=== PATIENT | female | born 1965 | race Caucasian/White ===

== ENCOUNTER 2022-10-15 09:34 | Outpatient (AMB) | payer OTHER, SELFPAY ==
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
[2022-10-15 09:39] VITALS: BP 127/83; PULSE 55; O2SAT 98; BMI 23.8
== END 2022-10-15 10:25 | disposition home or self-care (01) ==
PROVIDERS: PCP Family Medicine; Visit Provider Internal Medicine
DX: M47.817 Spondylosis without myelopathy or radiculopathy, lumbosacral region (principal); M53.3 Sacrococcygeal disorders, not elsewhere classified
CPT/HCPCS: 99204

== ENCOUNTER → 2022-10-15 09:34 | Outpatient (BNVA) | payer OTHER, SELFPAY | PROVIDERS: Visit Provider Internal Medicine ==

== ENCOUNTER 2022-11-14 06:04 | Outpatient (REF) | payer OTHER, SELFPAY ==
--- NOTE | ~2022-11-14 | FL_ITS ---
EXAMINATION: XR FLUOROSCOPY WITH IMAGES CLINICAL INFORMATION: Spondylosis without myelopathy or radiculopathy, lumbosacral region. Bilateral lumbar injections. COMPARISON: None available. TECHNIQUE: Fluoroscopy Supervised By: Dr. Alonso Terrell. Fluoroscopy Time: 0.2 minutes. Cumulative Dose: 3.13 mGy. DAP: 0.352 Gycm2. Images: 3. FINDINGS: Images demonstrate needle placement and contrast injection adjacent to the bilateral lateral L5 and right L3 vertebrae. Fusion hardware L4-L5. FL/FL guidance in treatment room IMPRESSION: Fluoroscopy guidance for pain management procedure.
== END 2022-11-14 06:05 | disposition home or self-care (01) ==
LOC: CF 06:04
PROVIDERS: Visit Provider Internal Medicine
DX: M47.817 Spondylosis without myelopathy or radiculopathy, lumbosacral region (principal)
CPT/HCPCS: 64493; 64494

== ENCOUNTER 2022-11-14 08:10 | Outpatient (AMB) | payer OTHER, SELFPAY ==
--- OUTSIDE RECORDS SUMMARY | 2022-11-14 08:11 | XMS_ITS | Continuity of Care Document ---
Author Name Unknown Organization [facility] Address [address] [place] [address]- Care Team Providers Care Receptionist Nurse Name Role Phone Darell Zacarias DO Primary Care [id number]s): [facility]07[facility]21 - 02/18/22 [facility] [address] [place] [address]- Attending Physician: Charles Patten MD Admitting Physician: Charles Patten MD Referring Physician: Mira Crenshaw NP Allergies, Adverse Reactions, Alerts Substance Reaction Severity Status sulfa drugs Active Medications Flonase 1 sprays, Daily, 0 Refills, Maintenance, 11/29/14 7:54:46 Start Date: 11/29/14 Status: Ordered Flovent Diskus 50 mcg/inh inhalation powder 1 each, Inhalation, 2 times a day, # 60 each, 0 Refills, Maintenance, 11/22/21 13:18:00 EDT, [id number], Partial fill upon patient request if the prescription is for a schedule II opioid drug., 1 each Inhalation 2 times a day,... Start Date: 11/22/21 Status: Ordered Multivitamin Daily, 0 Refills, Maintenance, 03/26/17 15:49:30 Start Date: 03/26/17 Status: Ordered Probiotic Formula 1 capsule, By Mouth, Daily, 0 Refills, Maintenance, 11/29/14 7:54:36 Start Date: 11/29/14 Status: Ordered Readi-Cat Readi-Cat, See Instructions, # 2 bottle, Refills 0, Tot. Refills 0, Maintenance, 1)Drink one bottleof Readi-Cat the evening prior to exam. 2)One hour prior to exam, drink a second bottle of Readi-Cat, 03/27/17 18:04:00, see refrence informaiton on... Start Date: 03/27/17 Status: Ordered Readi-Cat 2 oral suspension See Instructions, Drink one bottle of Readi-Cat the evening prior to exam. One hour prior to exam, drink a second bottle of Readi-Cat, # 2 bottle, 0 Refills, Maintenance, 03/27/17 17:18:34, Drink onebottle of Readi-Cat the evening prior to exam.... Start Date: 03/27/17 Status: Ordered Problem List Condition Confirmation Course Effective Dates Status Health St atus Informant Bradycardia Confirmed Active Social History Social History Type Response Smoking Status Never (less than 100 in lifetime) entered on: 04/18/20 Sex Patient Care team information Care Team Personnel Name: Darell Zacarias DO Position: [facility] Primary Care Physician Member Role: PCP Address: Address: [address] [place] [address] [place] [address]- Name: Emerald GUSTAFSON, Madhuri Position: [facility] Physician -Physician Practices Member Role: Lifetime Consulting Physician Care Team Related Persons Name: REVA TURPIN Address: [address] [place] [address] Name: FANTA VERONICA Address: home [address] [place] [id number]
--- OUTSIDE RECORDS SUMMARY | 2022-11-14 08:11 | XMS_ITS | Continuity of Care Document ---
Author Name Unknown Organization [facility] Address [address] [place] [address]- Care Team Providers Care Clay Grinder Name Role Phone Darell Zacarias DO [facility] [id number] Date(s): 01/19/22 - 02/18/22 [facility] [address] [place] [address]- Attending Physician: Felice Corrigan Admitting Physician: Felice Corrigan Referring Physician: Felice Corrigan Allergies, Adverse Reactions, Alerts Substance Reaction Severity Status sulfa drugs Active Medications Flonase 1 sprays, Daily, 0 Refills, Maintenance, 11/29/14 7:54:46 Start Date: 11/29/14 Status: Ordered Flovent Diskus 50 mcg/inh inhalation powder 1 each, Inhalation, 2 times a day, # 60 each, 0 Refills, Maintenance, 11/22/21 13:18:00 EDT, Powder, [id number], Partial fill upon patient request if the [...] Team Personnel Name: Darell Zacarias DO Position: [facility] Primary Care Physician Member Role: PCP Address: Address: [address] [place] [address] [place] [address]- Name: Madhuri Corbin MD Position: [facility] Physician -Physician Practices Member Role: Lifetime Consulting Physician Care Team Related Persons Name: REVA TURPIN Address: home [address] [place] [address] Name: FANTA VERONICA Address: home [address] [place] [address]
[2022-11-14 08:24] VITALS: BP 120/64; PULSE 54; RESP 14; O2SAT 100
--- NOTE | 2022-11-14 08:24 | A.OFFVIS_ITS ---
Intake Vital Signs 11/14/22 08:24 11/14/22 09:06 BP 120/64 112/62 Blood Pressure Location Rt brachial Lt brachial Position Sitting Sitting Respiration 14 14 Pulse 54 54 Pulse Source Pulse Oximeter Pulse Oximeter Pulse Oximetry (%) 100 100 Oxygen Delivery Method Room Air Room Air Intake Visit Reasons: Taj Dx L3-L4-L5 MBB Allergies Sulfa (Sulfonamide Antibiotics) Allergy (Unknown, Verified 11/14/22 08:24) Unknown HPI Taj Dx L3-L4-L5 MBB HPI Details Patient presents for scheduled procedure. Denies any recent cough, cold, infection, fever or other significant changes in medical history since last office visit. [facility] Medical History (Updated 10/18/22 @ 11:53 by Alonso Terrell MD) Disorder of sacrum Lumbosacral spondylosis without myelopathy Surgical History (Updated 10/18/22 @ 11:53 by Alonso Terrell MD) History of lumbar laminectomy Social History (Updated 10/15/22 @ 09:42 by Brenda Olvera) Alcohol intake: current Alcohol type: beer and wine Patient Tobacco Use Status: Never used Tobacco Physical Exam Vital Signs: Last Vital Signs Pulse 54 11/14/22 08:24 Resp 14 11/14/22 08:24 BP 120/64 11/14/22 08:24 Pulse Ox 100 11/14/22 08:24 Oxygen Delivery Method Room Air 11/14/22 08:24 Office Procedures Lumbar/Sacral Facet Inj Details: Lumbar Medial Branch Block, Right L2, L4 medial branches and L5 Dorsal Ramus (2 levels, 3 nerves), Left L4 medial branch and L5 Dorsal Ramus (1 level, 2 nerves) After obtaining written consent, pre-procedure blood pressure and pulse were recorded and are in the nursing record for review. The patient was placed in a prone position. The respective lumbosacral area was prepped with chloraprep and draped in sterile fashion. The skin over the target medial branch nerves was anesthetized with 0.5% lidocaine. A 22 gauge 3.5 inch needle was inserted into the target medial branch nerve under fluoroscopic guidance. No paresthesias were elicited with needle placement and aspiration was negative for blood and CSF. Next, 0.2cc of Isovue 300 was injected to verify positioning. Next 0.5 ml 0.5% ropivicaine was injected (0.5cc total per level). The identical procedure was performed at the remaining levels. The skin was cleansed and a sterile bandage was applied. Following the procedure the patient's vital signs were stable. The patient tolerated the procedure well and no complications were encountered. Following the procedure the patient's vital signs were stable. The patient was discharged home in good condition with post-procedural instructions. Time Out: Immediately prior to the procedure, the following was verbally confirmed that there is a signed consent form and that the correct patient, planned procedure, site and side are consistent with documentation and that necessary equipment and/or blood products are available prior to the start of the case. Complications: none EBL: <5 cc 51684 - second level, with Fluoroscopy Procedure code (CPT) selection complete Assessment & Plan Assessment & Plan (1) Lumbosacral spondylosis without myelopathy: Code(s): M47.817 - Spondylosis without myelopathy or radiculopathy, lumbosacral region Plan Patient is status post bilateral lumbar MBBs. Patient tolerated procedure well and was discharged home in stable condition with discharge instructions. All questions were answered. We will follow-up via telephone or in clinic to assess response to therapy. A follow-up appointment was made during today's visit. Orders: Orders FL guidance in treatment room Today M47.817 - Spondylosis without myelopathy or radiculopathy, lumbosacral region Coding Level of Care Code Procedure Only Diagnoses Lumbosacral spondylosis without myelopathy M47.817 CPT Codes Facet Injection-Lumbar/Sacral - CPT: 24870 - second level, with Fluoroscopy ([id number])
[2022-11-14 09:06] VITALS: BP 112/62; PULSE 54; RESP 14; O2SAT 100
== END 2022-11-14 09:08 | disposition home or self-care (01) ==
LOC: HO.PMCPRC 08:10
PROVIDERS: PCP Family Medicine; Visit Provider Internal Medicine
DX: M47.817 Spondylosis without myelopathy or radiculopathy, lumbosacral region (principal)
CPT/HCPCS: 64493; 64494

== ENCOUNTER 2022-11-16 10:42 | Outpatient (AMB) | payer OTHER, SELFPAY ==
--- NOTE | 2022-11-16 10:42 | MHC.OFFVIS ---
Intake Intake Visit Reasons: s/p dell DxL3-L4-L5 MBB Allergies Sulfa (Sulfonamide Antibiotics) Allergy (Unknown, Verified 11/14/22 08:24) Unknown HPI s/p dell DxL3-L4-L5 MBB HPI Details 57-year-old female is presenting today for a status post bilateral diagnostic L3-L4-L5 MBB. The patient reports no relief following the procedure. She states that her pain is localized in the lumbosacral region and radiates to her right buttock/hip region. She has intermittent shooting pain in her right hip region. She denies any radiating pain in her leg. She does body-weight squats and lunges while playing pickleball which increases the right-sided pain. She plays golf once a week. She is wearing SIJ belts at home without noticing any relief. The patient underwent right- and left-sided L5-S1 facet injections in the past, with significant relief for several months. She also had a diagnostic SIJ injection in the past with out relief though she does have a history of prior response to sacroiliac joint injections. She is occasionally using TENS units QHS with minimal benefits. She takes ibuprofen or Aleve (one tab) as needed. She has a schedule appointment for SIJ injection on 12/05/22. Past procedure: 11/14/22: Lumbar Medial Branch Block, Right L2, L4 medial branches and L5 Dorsal Ramus (2 levels, 3 nerves), Left L4 medial branch and L5 Dorsal Ramus (1 level, 2 nerves): No relief. [facility] Medical History (Updated 11/16/22 @ 12:12 by Alonso Terrell MD) Disorder of sacrum Lumbosacral spondylosis without myelopathy Surgical History (Updated 10/18/22 @ 11:53 by Alonso Terrell MD) History of lumbar laminectomy Social History (Updated 10/15/22 @ 09:42 by Brenda Olvera) Alcohol intake: current Alcohol type: beer and wine Patient Tobacco Use Status: Never used Tobacco Review of Systems Const All systems reviewed & are unremarkable except as noted in HPI and below Physical Exam General: Appears afebrile. Alert and oriented. Mood and affect appropriate. Follows and participates in conversation appropriately. Respiratory effort is unlabored. Able to transition from sit to stand unassisted. Ambulates with bilaterally normal heel strike and toe off. Results Reviewed Results Reviewed: No imaging is available for review. Assessment & Plan Assessment & Plan (1) Disorder of sacrum: Code(s): M53.3 - Sacrococcygeal disorders, not elsewhere classified (2) Lumbosacral spondylosis without myelopathy: Code(s): M47.817 - Spondylosis without myelopathy or radiculopathy, lumbosacral region (3) Post laminectomy syndrome: Code(s): M96.1 - Postlaminectomy syndrome, not elsewhere classified Plan 57-year-old female with a prior history of L4-5 laminectomy and fusion with intractable low back pain that has not been responsive to recent injection therapies including medial branch blocks and diagnostic SI joint injection. Since she has a prior history of positive response to sacroiliac joint injections, she is interested in trialing 1 word sacroiliac joint injection to see if that might provide some relief. There is no relief from the sacroiliac joint injection, we will consider a trial of spinal cord stimulation. I went over the details of psychology clearance, SCS trial an SCS implant with the patient today ? Scribed for Dr. Terrell by Kali Madrid, medical reception specialist, on 11/16/2022. I, Dr. Terrell, have personally reviewed and agree with the information entered by the scribe. Telehealth Telehealth Location of provider rendering services: practice address Location of patient: address on file Patient Identification confirmed using: Name, : Yes Telehealth method: voice only Patient verbally consented to treatment: Yes Patient verbally consented to billing insurance company: Yes Patient informed of any privacy concerns related to visit: Yes Minutes spent on Phone/Video with Pt.: 16 Coding Level of Care Code Tele Est Pt Level 4 (50083) Diagnoses Disorder of sacrum M53.3 Lumbosacral spondylosis without myelopathy M47.817 Post laminectomy syndrome M96.1
== END 2022-11-16 10:43 | disposition home or self-care (01) ==
LOC: HO.PMC 10:42
PROVIDERS: PCP Family Medicine; Visit Provider Internal Medicine
DX: M53.3 Sacrococcygeal disorders, not elsewhere classified (principal); M47.817 Spondylosis without myelopathy or radiculopathy, lumbosacral region; M96.1 Postlaminectomy syndrome, not elsewhere classified
CPT/HCPCS: 99442

== ENCOUNTER → 2022-11-16 10:42 | Outpatient (BNVA) | payer OTHER, SELFPAY | PROVIDERS: PCP Family Medicine; Visit Provider Internal Medicine ==

== ENCOUNTER 2022-12-05 06:07 | Outpatient (REF) | payer OTHER, SELFPAY ==
--- NOTE | ~2022-12-05 | FL_ITS ---
EXAMINATION: XR FLUOROSCOPY WITH IMAGES CLINICAL INFORMATION: Sacrococcygeal disorders, not elsewhere classified. COMPARISON: None available. TECHNIQUE: Fluoroscopy Supervised By: Dr. Alonso Terrell. Fluoroscopy Time: 0.2 minutes. Cumulative Dose: 4.90 mGy. DAP: 0.347 Gycm2. Images: 4. FINDINGS: Images demonstrate needle placement projecting over the bilateral sacroiliac joints FL/FL guidance in treatment room IMPRESSION: Fluoroscopy guidance for pain management procedure
== END 2022-12-05 06:08 | disposition home or self-care (01) ==
LOC: CF 06:07
PROVIDERS: Visit Provider Internal Medicine
DX: M53.3 Sacrococcygeal disorders, not elsewhere classified (principal)
CPT/HCPCS: 27096; J1040

== ENCOUNTER 2022-12-05 08:12 | Outpatient (AMB) | payer OTHER, SELFPAY ==
[2022-12-05 08:19] VITALS: BP 138/82; PULSE 54; RESP 14; O2SAT 100
--- NOTE | 2022-12-05 08:19 | MHC.OFFVIS ---
Intake Vital Signs 12/05/22 08:19 12/05/22 08:57 BP 138/82 124/76 Blood Pressure Location Rt brachial Lt brachial Position Sitting Sitting Respiration 14 14 Pulse 54 56 Pulse Source Pulse Oximeter Pulse Oximeter Pulse Oximetry (%) 100 100 Oxygen Delivery Method Room Air Room Air Intake Visit Reasons: Taj theraputic SIJ inj Allergies Sulfa (Sulfonamide Antibiotics) Allergy (Unknown, Verified 12/05/22 08:20) Unknown HPI Taj theraputic SIJ inj HPI Details Patient presents for scheduled procedure. Denies any recent cough, cold, infection, fever or other significant changes in medical history since last office visit. [facility] Medical History (Updated 11/16/22 @ 12:12 by Alonso Terrell MD) Disorder of sacrum Lumbosacral spondylosis without myelopathy Surgical History (Updated 10/18/22 @ 11:53 by Alonso Terrell MD) History of lumbar laminectomy Social History (Updated 10/15/22 @ 09:42 by Brenda Olvera) Alcohol intake: current Alcohol type: beer and wine Patient Tobacco Use Status: Never used Tobacco Physical Exam Vital Signs: Last Vital Signs Pulse 54 12/05/22 08:19 Resp 14 12/05/22 08:19 BP 138/82 12/05/22 08:19 Pulse Ox 100 12/05/22 08:19 Oxygen Delivery Method Room Air 12/05/22 08:19 Office Procedures Joint Injection/Drain Joint Injection/Drain Details: Sacroiliac Joint Injection, Bilateral The procedure, its benefits, and its risks were explained and written informed consent was obtained from the patient. Immediately prior to starting the procedure, a time-out safety check was conducted. The patient's identification, procedure name, procedure site, and procedure laterality were confirmed with the patient. ? Patient was placed prone on the fluoroscopy table and the lumbosacral area was prepped using ChloraPrep and draped with sterile drapein standard fashion. The C-arm was rotated in a contralateral oblique fashion until the medial border of the iliac crest no longer foreshadowed the posterior sacroiliac joint line. The skin and subcutaneous tissue was anesthetized using 1 mL of 0.75% plain lidocaine with 1.5-inch 25-gauge needle in the middle region of the joint line.? A 3.5-inch 22-gauge spinal needle with small bend on the tip was slowly advanced towards the joint line, coaxial to the x-ray beam. Once bony content was obtained, the needle was easily slid into the intra-articular space.? Intra-articular needle position was confirmed using lateral fluoroscopy.? A total volume of 1.5mL of solution containing 40 mg Depomedrol and rest 0.5% of ropivacaine was injected intra-articularly. The stylet was reinserted and needle was removed. The same procedure was repeated on the other side. The patient tolerated the procedure well. Patient denied any lower extremity weakness or numbness. Patient was observed for 30 min and was discharged after fulfilling the standard discharge criteria. Coding 95231 - Sacroiliac (bilateral) Procedure code (CPT) selection complete Results Reviewed Results Reviewed: 12/05/22 08:24 Lidocaine HCl 2 % MPF [Xylocaine 2 % MPF] 5 ml .ROUTE .STK-MED ONE methylPREDNISolone acetate [DEPO-MedroL] 80 mg .ROUTE .STK-MED ONE Assessment & Plan Assessment & Plan (1) Disorder of sacrum: Code(s): M53.3 - Sacrococcygeal disorders, not elsewhere classified Plan Patient is status post bilateral intra-articular SIJ steroid injections. Patient tolerated procedure well and was discharged home in stable condition with discharge instructions. All questions were answered. We will follow-up via telephone or in clinic to assess response to therapy. A follow-up appointment was made during today's visit. Orders: Orders FL guidance in treatment room Today M53.3 - Sacrococcygeal disorders, not elsewhere classified Coding Level of Care Code Procedure Only Diagnoses Disorder of sacrum M53.3 CPT Codes Coding - Joint 9: 86465 - Sacroiliac ([id number])
[2022-12-05 08:57] VITALS: BP 124/76; PULSE 56; RESP 14; O2SAT 100
== END 2022-12-05 08:54 | disposition home or self-care (01) ==
LOC: HO.PMCPRC 08:12
PROVIDERS: PCP Family Medicine; Visit Provider Internal Medicine
DX: M53.3 Sacrococcygeal disorders, not elsewhere classified (principal)
CPT/HCPCS: 27096

== ENCOUNTER 2023-01-04 09:36 | Outpatient (AMB) | payer OTHER, SELFPAY ==
--- NOTE | 2023-01-04 09:37 | A.OFFVIS_ITS ---
Intake Intake Visit Reasons: s/p dell theraputic SIJ inj/lvm Allergies Sulfa (Sulfonamide Antibiotics) Allergy (Unknown, Verified 12/05/22 08:20) Unknown HPI s/p dell theraputic SIJ inj/lvm HPI Details 57-year-old female who presents today vi a tele-visit for a status post bilateral therapeutic SIJ injection. The patient reports 75% relief following the procedure. She has mild discomfort that is not bothersome. The patient has a past history of L4-5 fusion and a laminectomy in June 2016. She has received L5-S1 facet injections in the past from Dr. Dukes without any relief. She had an MRI scan that was ordered by Dr. Appiah, neurosurgery, on 01/08/2020, which is not available for review today. She is going to [place] in the winter for vacation. She plays pick-a-ball that includes twisting and bending. She inquired about trying a muscle relaxant or oral medication for her intermittent low back pain that occasionally radiates down to her lower extremities. Past procedures: 12/05/22: Bilateral intra-articular SIJ steroid injections: more than 75% relief. 11/14/22: Lumbar Medial Branch Block, Ri ght L2, L4 medial branches and L5 Dorsal Ramus (2 levels, 3 nerves), Left L4 medial branch and L5 Dorsal Ramus (1 level, 2 nerves): No relief. [facility] Medical History (Updated 11/16/22 @ 12:12 by Alonso Trerell MD) Disorder of sacrum Lumbosacral spondylosis without myelopathy Surgical History (Updated 10/18/22 @ 11:53 by Alonso Terrell MD) History of lumbar laminectomy Social History (Updated 10/15/22 @ 09:42 by Brenda Olvera) Alcohol intake: current Alcohol type: beer and wine Patient Tobacco Use Status: Never used Tobacco Review of Systems Const All systems reviewed & are unremarkable except as noted in HPI and below Results Reviewed Results Reviewed: No imaging is available for review. Assessment & Plan Assessment & Plan (1) Post laminectomy syndrome: Code(s): M96.1 - Postlaminectomy syndrome, not elsewhere classified (2) Disorder of sacrum: Code(s): M53.3 - Sacrococcygeal disorders, not elsewhere classified Plan Excellent response to therapeutic sacroiliac joint injection. Meloxicam to be taken as needed while she is traveling in [place]. She will follow up as needed for a repeat injection. Scribed for Dr. Terrell by Kali Madrid, medical radiation therapist, on 01/04/2023. I, Dr. Terrell, have personally reviewed and agree with the information entered by the scribe. Medications: New meloxicam 15 mg PO DAILY 30 tabs 0RF Telehealth Telehealth Location of provider rendering services: practice address Location of patient: address on file Patient Identification confirmed using: Name, : Yes Telehealth method: voice only Patient verbally consented to treatment: Yes Patient verbally consented to billing insurance company: Yes Patient informed of any privacy concerns related to visit: Yes Minutes spent on Phone/Video with Pt.: 14 Coding Level of Care Code Tele Est Pt Level 3 (70347) Diagnoses Post laminectomy syndrome M96.1 Disorder of sacrum M53.3
== END 2023-01-04 09:37 | disposition home or self-care (01) ==
LOC: HO.PMC 09:36
PROVIDERS: PCP Family Medicine; Visit Provider Internal Medicine
DX: M96.1 Postlaminectomy syndrome, not elsewhere classified (principal); M53.3 Sacrococcygeal disorders, not elsewhere classified
CPT/HCPCS: 99213

== ENCOUNTER → 2023-01-04 09:36 | Outpatient (BNVA) | payer OTHER, SELFPAY | PROVIDERS: PCP Family Medicine; Visit Provider Internal Medicine ==

== ENCOUNTER 2023-07-08 08:45 | Outpatient (AMB) | payer OTHER, SELFPAY ==
[2023-07-08 08:49] VITALS: BP 146/83; PULSE 63; RESP 14; O2SAT 100; BMI 22.7
--- NOTE | 2023-07-08 08:49 | A.OFFVIS_ITS ---
Vital Signs 07/08/23 08:49 Height 5 ft 4 in Weight 132 lb BMI 22.7 BP 146/83 H Blood Pressure Location Lt brachial Position Sitting Respiration 14 Pulse 63 Pulse Source Pulse Oximeter Pulse Oximetry (%) 100 Oxygen Delivery Method Room Air Intake Visit Reasons: Injection Discussion (EVIE: 12/2022) Allergies Sulfa (Sulfonamide Antibiotics) Allergy (Unknown, Verified 07/08/23 08:51) Unknown Medication List - Last Reconciled 07/08/23 by Sandy Huber LPN arnica 20% ea topical ibuprofen (Advil Liqui-Gel) 400 mg PO Q8H meloxicam 15 mg PO DAILY HPI HPI Injection Discussion (EVIE: 12/2022): Details: 58-year-old female who presents today to the office for a discussion of injection. The patient reports good relief following the procedure. She played pickleball without any discomfort. She started to notice some tightness and paresthesia sensations radiating down to her foot in May 2023. Her right side is worse than the left side. She continues to have good relief on the left side. Her pain worsens when lying down to sleep at night. She intermittently performs home exercises, including stretching exercises. She had a back surgery in 2016. She takes Advil occasionally. She sleeps on her sides or back. She also uses pillows for support. She had a meniscal tear injury from the sport play in her college and had received injections in the past. Past procedures: 12/05/22: Bilateral intra-articular SIJ steroid injections: more than 75% relief. 11/14/22: Lumbar Medial Branch Block, Right L2, L4 medial branches and L5 Dorsal Ramus (2 levels, 3 nerves), Left L4 medial branch and L5 Dorsal Ramus (1 level, 2 nerves): No relief. [facility] Medical History (Updated 07/08/23 @ 09:23 by Alonso Terrell MD) Disorder of sacrum Lumbosacral spondylosis without myelopathy Surgical History (Updated 10/18/22 @ 11:53 by Alonso Terrell MD) History of lumbar laminectomy Social History (Updated 10/15/22 @ 09:42 by Brenda Olvera) Alcohol intake: current Alcohol type: beer and wine Patient Tobacco Use Status: Never used Tobacco Review of Systems Const All systems reviewed & are unremarkable except as noted in HPI and below Physical Exam Vital Signs: Last Vital Signs Pulse 63 07/08/23 08:49 Resp 14 07/08/23 08:49 BP 146/83 H 07/08/23 08:49 Pulse Ox 100 07/08/23 08:49 Oxygen Delivery Method Room Air 07/08/23 08:49 BMI result Body Mass Index 22.7 General: Appears afebrile. Alert and oriented. Mood and affect appropriate. Follows and participates in conversation appropriately. Respiratory effort is unlabored. Able to transition from sit to stand unassisted. Ambulates with bilaterally normal heel strike and toe off. Results Reviewed Results Reviewed: No imaging is available for review. Assessment & Plan Assessment & Plan (1) Left knee pain: Code(s): M25.562 - Pain in left knee Category: Medical Plan We will schedule her for a right intra-articular SIJ steroid injection. Discussed the risks and benefits of the procedure with the patient in detail. All questions were answered. The patient is on board with the plan. Will order bilateral plane films of the knees for right knee pain. Justification for interventional therapy: ? Patient with average pain > 6/10 ? Patient has exhausted conservative therapy ? Patient continuing home exercise program ? Previous SIJ injection provided 80% relief for six months. . Patient has a good understanding of their pain condition and has appropriate mental and social support. Scribed for Dr. Terrell by Kali Madrid, vp medical, on 07/08/2023. I, Dr. Remi cruz, have personally reviewed and agree with the information entered by the scribe. Orders: Orders XR knee standing BI 07/08/23 M25.562 - Pain in left knee Coding Level of Care Code Est Pt Level 3 (71509) Diagnoses Left knee pain M25.562
== END 2023-07-08 09:51 | disposition home or self-care (01) ==
PROVIDERS: PCP Family Medicine; Visit Provider Internal Medicine
DX: M25.562 Pain in left knee (principal)
CPT/HCPCS: 99213

== ENCOUNTER → 2023-07-08 08:45 | Outpatient (BNVA) | payer OTHER, SELFPAY | PROVIDERS: PCP Family Medicine; Visit Provider Internal Medicine ==

== ENCOUNTER 2023-08-29 06:10 | Outpatient (REF) | payer OTHER, SELFPAY ==
--- NOTE | ~2023-08-29 | FL_ITS ---
EXAMINATION: XR FLUOROSCOPY WITH IMAGES CLINICAL INFORMATION: Sacrococcygeal disorder. COMPARISON: None available. TECHNIQUE: Fluoroscopy Supervised By: Dr. Alonso Terrell. Fluoroscopy Time: 0.1 minutes. Cumulative Dose: 1.21 mGy. DAP: 0.77754 Gy-cm2. Images: 2. FINDINGS: Intraoperative fluoroscopy and spot films were performed during a procedure in the OR. A needle is seen overlying the region of the right mid SI joint. Please correlate with Dr. Alonso Terrell' report for complete details. FL/FL guidance in treatment room IMPRESSION: Intraoperative fluoroscopy and spot films were obtained. Please see Dr. Alonso Terrell' report for complete details.
== END 2023-08-29 06:11 | disposition home or self-care (01) ==
LOC: CF 06:10
PROVIDERS: Visit Provider Internal Medicine
DX: M53.3 Sacrococcygeal disorders, not elsewhere classified (principal)
CPT/HCPCS: 27096; J2795; J3301; Q9967

== ENCOUNTER 2023-08-29 09:29 | Outpatient (AMB) | payer OTHER, SELFPAY ==
[2023-08-29 09:37] VITALS: BP 128/72; PULSE 52; RESP 18; O2SAT 98; BMI 22.7
--- NOTE | 2023-08-29 09:37 | MHC.OFFVIS ---
Vital Signs 08/29/23 09:37 08/29/23 10:16 Height 5 ft 4 in Weight 132 lb BMI 22.7 BP 128/72 126/80 Blood Pressure Location Lt brachial Lt brachial Position Sitting Sitting Respiration 18 16 Pulse 52 60 Pulse Source Pulse Oximeter Pulse Oximeter Pulse Oximetry (%) 98 96 Oxygen Delivery Method Room Air Room Air Comment Pre-Op Post-Op Intake Visit Reasons: Right theraputic SIJ inj Allergies Sulfa (Sulfonamide Antibiotics) Allergy (Unknown, Verified 07/08/23 08:51) Unknown HPI HPI Right theraputic SIJ inj: Details: Patient presents for scheduled procedure. Denies any recent cough, cold, infection, fever or other significant changes in medical history since last office visit. [facility] Medical History (Updated 08/21/23 @ 14:03 by Michelle Ivey APRN, POOJA) Disorder of sacrum Lumbosacral spondylosis without myelopathy Surgical History (Updated 10/18/22 @ 11:53 by Alonso Terrell MD) History of lumbar laminectomy Social History (Updated 10/15/22 @ 09:42 by Brenda Olvera) Alcohol intake: current Alcohol type: beer and wine Patient Tobacco Use Status: Never used Tobacco Physical Exam Vital Signs: Last Vital Signs Pulse 52 08/29/23 09:37 Resp 18 08/29/23 09:37 BP 128/72 08/29/23 09:37 Pulse Ox 98 08/29/23 09:37 Oxygen Delivery Method Room Air 08/29/23 09:37 BMI result Body Mass Index 22.7 Office Procedures Joint Injection/Drain Joint Injection/Drain Details: Sacroiliac Joint Injection, Right The procedure, its benefits, and its risks were explained and written informed consent was obtained from the patient. Immediately prior to starting the procedure, a time-out safety check was conducted. The patient's identification, procedure name, procedure site, and procedure laterality were confirmed with the patient. ? Patient was placed prone on the fluoroscopy table and the lumbosacral area was prepped using ChloraPrep and draped with sterile drape in standard fashion. The C-arm was rotated in a contralateral oblique fashion until the medial border of the iliac crest no longer foreshadowed the posterior sacroiliac joint line. The skin and subcutaneous tissue was anesthetized using 1 mL of 0.75% plain lidocaine with 1.5-inch 25-gauge needle in the middle region of the joint line.? A 3.5-inch 22-gauge spinal needle with small bend on the tip was slowly advanced towards the joint line, coaxial to the x-ray beam. Once bony content was obtained, the needle was easily slid into the intra-articular space.? Intra-articular needle position was confirmed using lateral fluoroscopy.? A total volume of 2.5mL of solution containing 40 mg triamcinolone and rest 0.5% of ropivacaine was injected intra-articularly. The stylet was reinserted and needle was removed. The patient tolerated the procedure well. Patient denied any lower extremity weakness or numbness. Patient was observed for 30 min and was discharged after fulfilling the standard discharge criteria. Coding 47722 - Sacroiliac Procedure code (CPT) selection complete Assessment & Plan Assessment & Plan (1) Sacroiliac dysfunction: Code(s): M53.3 - Sacrococcygeal disorders, not elsewhere classified Category: Medical Plan Patient is status post therapeutic right sacroiliac joint injection. Patient tolerated procedure well and was discharged home in stable condition with discharge instructions. All questions were answered. We will follow-up via telephone or in clinic to assess response to therapy. A follow-up appointment was made during today's visit. Orders: Orders FL guidance in treatment room Today M53.3 - Sacrococcygeal disorders, not elsewhere classified Coding Level of Care Code Procedure Only Diagnoses Sacroiliac dysfunction M53.3 CPT Codes Coding - Joint 9: 57938 - Sacroiliac ([id number])
[2023-08-29 10:16] VITALS: BP 126/80; PULSE 60; RESP 16; O2SAT 96
== END 2023-08-29 10:07 | disposition home or self-care (01) ==
LOC: HO.PMCPRC 09:29
PROVIDERS: PCP Family Medicine; Visit Provider Internal Medicine
DX: M53.3 Sacrococcygeal disorders, not elsewhere classified (principal)
CPT/HCPCS: 27096

== ENCOUNTER 2023-09-27 08:49 | Outpatient (AMB) | payer OTHER, SELFPAY ==
--- NOTE | 2023-09-27 08:50 | A.OFFVIS_ITS ---
Intake Visit Reasons: s/p right theraputic SIJ inj Allergies Sulfa (Sulfonamide Antibiotics) Allergy (Unknown, Verified 07/08/23 08:51) Unknown HPI HPI s/p right theraputic SIJ inj: Details: 58-year-old female who presents on tele-visit for a status post right therapeutic SIJ injection. The patient reports more than 50% relief following the procedure. She was playing pickleball and golf last week and started feeling some tightness in the midback and hip region around the gluteal muscle. She has been doing stretches and exercises at home. She has been doing massage therapy. She has previously received facet injections from Dr. Dukes in the past with good relief for about six months. She states that her current pain is similar to what she experienced in the past. The last facet injection was about two years ago. She visited physical therapy right after her surgery, and they provided some exercises, which she has been doing at home with minimal relief.? Past procedures 08/29/23: Sacroiliac Joint Injection, Right: more than 50% relief. 12/05/22: Bilateral intra-articular SIJ steroid injections: more than 75% relief. 11/14/22: Lumbar Medial Branch Block, Right L2, L4 medial branches and L5 Dorsal Ramus (2 levels, 3 nerves), Left L4 medial branch and L5 Dorsal Ramus (1 level, 2 nerves): No relief. REPLACED BY [facility] Medical History (Updated 08/21/23 @ 14:03 by Michelle Ivey APRN, BANKRUPTCY PROCESSOR) Disorder of sacrum Lumbosacral spondylosis without myelopathy Surgical History (Updated 10/18/22 @ 11:53 by Alonso Terrell MD) History of lumbar laminectomy Social History (Updated 10/15/22 @ 09:42 by Brenda Olvera) Alcohol intake: current Alcohol type: beer and wine Patient Tobacco Use Status: Never used Tobacco Review of Systems Const All systems reviewed & are unremarkable except as noted in HPI and below Telehealth Telehealth Telehealth Platform: [employer] Location of provider rendering services: practice address Location of patient: address on file Patient Identification confirmed using: Name, : Yes Telehealth method: video Patient verbally consented to treatment: Yes Patient verbally consented to billing insurance company: Yes Patient informed of any privacy concerns related to visit: Yes Minutes spent on Phone/Video with Pt.: 10 Results Reviewed Results Reviewed: No imaging is available for review. Assessment & Plan Assessment & Plan (1) Sacroiliac dysfunction: Code(s): M53.3 - Sacrococcygeal disorders, not elsewhere classified Category: Medical (2) Post laminectomy syndrome: Code(s): M96.1 - Postlaminectomy syndrome, not elsewhere classified Category: Medical (3) Lumbosacral spondylosis without myelopathy: Code(s): M47.817 - Spondylosis without myelopathy or radiculopathy, lumbosacral region Category: Medical Plan A referral was provided to physical therapy. The patient will call and schedule an appointment. A script was also faxed to the [facility] for physical therapy. Follow up in 8 weeks to assess the response to physical therapy.? Scribed for Dr. Terrell by Kali Madrid, medical recruiter, on 09/23/2023. I, Dr. Terrell, have personally reviewed and agree with the information entered by the scribe. Orders: Orders PT Evaluation and Treatment Today M47.817 - Spondylosis without myelopathy or radiculopathy, lumbosacral region, M53.3 - Sacrococcygeal disorders, not e lsewhere classified, M96.1 - Postlaminectomy syndrome, not elsewhere classified Coding Level of Care Code Tele Est Pt Level 3 (77512) Diagnoses Sacroiliac dysfunction M53.3 Post laminectomy syndrome M96.1 Lumbosacral spondylosis without myelopathy M47.817
== END 2023-09-27 08:50 | disposition home or self-care (01) ==
LOC: HO.PMC 08:49
PROVIDERS: PCP Family Medicine; Visit Provider Internal Medicine
DX: M53.3 Sacrococcygeal disorders, not elsewhere classified (principal); M96.1 Postlaminectomy syndrome, not elsewhere classified; M47.817 Spondylosis without myelopathy or radiculopathy, lumbosacral region
CPT/HCPCS: 99213

== ENCOUNTER → 2023-09-27 08:49 | Outpatient (BNVA) | payer OTHER, SELFPAY | PROVIDERS: PCP Family Medicine; Visit Provider Internal Medicine ==

== ENCOUNTER 2023-11-06 10:45 | Outpatient (AMB) | payer OTHER, SELFPAY ==
--- NOTE | 2023-11-06 10:45 | MHC.OFFVIS ---
Intake Visit Reasons: F/U PT Allergies Sulfa (Sulfonamide Antibiotics) Allergy (Unknown, Verified 07/08/23 08:51) Unknown HPI HPI F/U PT: Details: 58-year-old female who presents today for a follow-up. Patient has been having chronic achiness in the low back and describes the pain as constant. She also has some discomfort in the low back at night. She notices her pain interferes with her ADLs especially while playing pickleball. Patient has recently completed rounds physical therapy with persistent symptoms. She recalls she was playing pickleball and golf when she started feeling some tightness in the midback and hip region around the gluteal muscle. She is doing stretches religiously at home with benefit, but she had to stop playing pickleball for better relief. She previously had facet injections from Dr. Dukes with no significant relief. She is inquiring different treatment options to help with her pain. Patient has had good response to the bilateral therapeutic SI joint injection and would like to repeat the injection. Past procedures 08/29/23: Sacroiliac Joint Injection, Right: more than 50% relief. 12/05/22: Bilateral intra-articular SIJ steroid injections: more than 75% relief. 11/14/22: Lumbar Medial Branch Block, Right L2, L4 medial branches and L5 Dorsal Ramus (2 levels, 3 nerves), Left L4 medial branch and L5 Dorsal Ramus (1 level, 2 nerves): No relief. [facility] Medical History (Updated 08/21/23 @ 14:03 by Michelle Ivey APRN, COUNSELING CENTER MANAGER) Disorder of sacrum Lumbosacral spondylosis without myelopathy Surgical History (Updated 10/18/22 @ 11:53 by Alonso Terrell MD) History of lumbar laminectomy Social History (Updated 10/15/22 @ 09:42 by Bernda Olvera) Alcohol intake: current Alcohol type: beer and wine Patient Tobacco Use Status: Never used Tobacco Physical Exam Vital Signs: General: Appears afebrile. Alert and oriented. Mood and affect appropriate. Follows and participates in conversation appropriately. Respiratory effort is unlabored. Able to transition from sit to stand unassisted. Ambulates with bilaterally normal heel strike and toe off. Telehealth Telehealth Telehealth Platform: [facility] Location of provider rendering services: practice address Location of patient: address on file Patient Identification confirmed using: Name, : Yes Telehealth method: video Patient verbally consented to treatment: Yes Patient verbally consented to billing insurance company: Yes Patient informed of any privacy concerns related to visit: Yes Minutes spent on Phone/Video with Pt.: 11 Assessment & Plan Assessment & Plan (1) Sacroiliac dysfunction: Code(s): M53.3 - Sacrococcygeal disorders, not elsewhere classified Category: Medical Plan Will schedule the patient for bilateral therapeutic SI joint injection. Discussed the risks and benefits of the procedure with the patient in detail. All questions were answered. The patient is on board with the plan. Justification for interventional therapy: ? Patient with average pain > 6/10 ? Patient has exhausted conservative therapy ? Patient unable to tolerate physical therapy due to pain / Actively performing physical therapy / Patient continuing home exercise program ? Previous injection provided >75% relief x > 6 weeks. . Patient has a good understanding of their pain condition and has appropriate mental and social support Scribed for Dr. Terrell by [employer] medical reimbursement manager, on 11/06/2023. I, Dr. Terrell, have personally reviewed and agree with the information entered by the scribe. Coding Level of Care Code Tele Est Pt Level 3 (07355) Diagnoses Sacroiliac dysfunction M53.3
== END 2023-11-06 10:46 | disposition home or self-care (01) ==
LOC: HO.PMC 10:45
PROVIDERS: PCP Family Medicine; Visit Provider Internal Medicine
DX: M53.3 Sacrococcygeal disorders, not elsewhere classified (principal)
CPT/HCPCS: 99213

== ENCOUNTER → 2023-11-06 10:45 | Outpatient (BNVA) | payer OTHER, SELFPAY | PROVIDERS: PCP Family Medicine; Visit Provider Internal Medicine ==

== ENCOUNTER 2023-12-11 11:09 | Outpatient (AMB) | payer OTHER, SELFPAY ==
--- NOTE | 2023-12-11 11:11 | A.OFFVIS_ITS ---
Vital Signs 12/11/23 11:12 Height 5 ft 4 in Weight 133 lb BMI 22.8 BP 131/73 Blood Pressure Location Lt brachial Position Sitting Respiration 14 Pulse 55 Pulse Source Pulse Oximeter Pulse Oximetry (%) 98 Oxygen Delivery Method Room Air Intake Visit Reasons: exam for procedure denial Allergies Sulfa (Sulfonamide Antibiotics) Allergy (Unknown, Verified 12/11/23 11:14) Unknown Medication List - Last Reconciled 12/11/23 by Sandy Huber LPN arnica 20% ea topical diclofenac sodium 1% (Voltaren Arthritis Pain) 2 grams topical QID ibuprofen (Advil Liqui-Gel) 400 mg PO Q8H meloxicam 15 mg PO DAILY HPI HPI exam for procedure denial: Details: 58-year-old female who presents today for a follow-up.?Patient has been having chronic achiness in the low back and describes the pain as constant and around the hip area including front side. She also has groin pain and some discomfort in the low back at night. She does experience pain while playing pickleball, but she still choose to play while wearing SI belt. She does exercise at home. Patient has recently completed rounds physical therapy with persistent symptoms. She recalls she was playing pickleball and golf when she started feeling some tightness in the midback and hip region around the gluteal muscle. She is doing stretches religiously at home with benefit, but she had to stop playing pickleball for better relief. She previously had facet injections from Dr. Dukes with no significant relief. She is inquiring different treatment options to help with her pain. Patient has had good response to the bilateral therapeutic SI joint injection and would like to repeat the injection. She states she did not notice much difference with meloxicam at night. She still has difficulty sleeping due to pain at night. She states she does toss and turn despite taking Tylenol and ibuprofen. She uses multiple pillows while sleeping. She reports aching in the knees at times which prevents her from doing ADLs and is unsure if it is related to the lower back pain. She states she has a slight tear in the knees and mild soreness. She had a DEXA scan done 4-5 years ago [facility] showed borderline osteopenia between 5-7. She takes multivitamins which contains vitamin D and calcium. She denies taking calcium supplements separately.? Past procedures: 08/29/23: Sacroiliac Joint Injection, Right: more than 50% relief. 12/05/22: Bilateral intra-articular SIJ steroid injections: more than 75% relief. 11/14/22: Lumbar Medial Branch Block, Right L2, L4 medial branches and L5 Dorsal Ramus (2 levels, 3 nerves), Left L4 medial branch and L5 Dorsal Ramus (1 level, 2 nerves): No relief. [facility] Medical History (Updated 12/11/23 @ 11:38 by Alonso Terrell MD) Disorder of sacrum Lumbosacral spondylosis without myelopathy Surgical History (Updated 10/18/22 @ 11:53 by Alonso Terrell MD) History of lumbar laminectomy Social History (Updated 10/15/22 @ 09:42 by Brenda Olvera) Alcohol intake: current Alcohol type: beer and wine Patient Tobacco Use Status: Never used Tobacco Physical Exam Vital Signs: Last Vital Signs Pulse 55 12/11/23 11:12 Resp 14 12/11/23 11:12 BP 131/73 12/11/23 11:12 Pulse Ox 98 12/11/23 11:12 Oxygen Delivery Method Room Air 12/11/23 11:12 BMI result Body Mass Index 22.8 On exam today: Appears afebrile. Alert and oriented. Mood and affect appropriate. Follows and participates in conversation appropriately. Respiratory effort is unlabored. Able to transition from sit to stand unassisted. Ambulates with bilaterally normal heel strike and toe off. Able to stand and walk on toes and heels. SI joint examination: Tenderness over right SI joint. Gaenslen's positive. SI joint compression is positive. SI joint distraction is negative. JOSE MANUEL reproduces pain in the groin. Assessment & Plan Assessment & Plan (1) Right hip pain: Code(s): M25.551 - Pain in right hip Category: Medical (2) Sacroiliac dysfunction: Code(s): M53.3 - Sacrococcygeal disorders, not elsewhere classified Category: Medical Plan We will order x-rays of the left hip as a source of her lateral pain. Once we get x-rays done, we will tentatively plan for a right SI joint injection in combination with right hip injection. Orders: Orders XR hip BI w PEL1V 12/11/23 M25.551 - Pain in right hip Medications: New diclofenac sodium 1% (Voltaren Arthritis Pain) 2 grams topical QID gabapentin 300 mg PO BEDTIME 60 caps 0RF Coding Level of Care Code Est Pt Level 3 (72073) Diagnoses Right hip pain M25.551 Sacroiliac dysfunction M53.3
[2023-12-11 11:12] VITALS: BP 131/73; PULSE 55; RESP 14; O2SAT 98; BMI 22.8
== END 2023-12-11 11:47 | disposition home or self-care (01) ==
PROVIDERS: PCP Family Medicine; Visit Provider Internal Medicine
DX: M25.551 Pain in right hip (principal); M53.3 Sacrococcygeal disorders, not elsewhere classified
CPT/HCPCS: 99213

== ENCOUNTER 2023-12-11 11:09 | Outpatient (REF) | payer OTHER, SELFPAY ==
--- NOTE | ~2023-12-11 | XR_ITS ---
EXAMINATION: XR BILATERAL HIPS WITH AP PELVIS CLINICAL INFORMATION: M25.551 - Pain in right hip COMPARISON: None available. TECHNIQUE: AP view of the pelvis and single views of each hip were obtained. FINDINGS: Normal bone mineralization. No fracture, dislocation, or suspicious bone lesion. Mild degenerative changes in both hip joints, symmetric. L4-5 posterior instrumented fusion with laminectomy, without definite complication seen. SI joints demonstrate mild degenerative changes. No soft tissue abnormalities. XR/XR hip BI w PEL1V IMPRESSION: 1. No acute findings in the pelvis or hip joints. 2. Mild degenerative changes bilateral hips. Electronically signed by: Sancho Mcgee MD 02/17/2024 03:13 PM [place]
== END 2023-12-11 11:10 | disposition home or self-care (01) ==
LOC: HO.XRAY 11:09
PROVIDERS: PCP Family Medicine; Visit Provider Internal Medicine
DX: M25.551 Pain in right hip (principal)
CPT/HCPCS: 73521

== ENCOUNTER → 2023-12-11 11:57 | Outpatient (BNV) | payer OTHER, SELFPAY | PROVIDERS: PCP Family Medicine; Visit Provider Radiology Diagnostic Radiology | DX: M16.0 Bilateral primary osteoarthritis of hip (principal) | CPT/HCPCS: 73521 ==

== ENCOUNTER 2024-01-16 06:14 | Outpatient (REF) | payer OTHER, SELFPAY | END 2024-01-16 06:15 | disposition home or self-care (01) | LOC: CF 06:14 | PROVIDERS: Visit Provider Internal Medicine | DX: M53.3 Sacrococcygeal disorders, not elsewhere classified (principal) | CPT/HCPCS: 27096; J2003; J2795; J3301 ==

== ENCOUNTER 2024-01-16 10:27 | Outpatient (AMB) | payer OTHER, SELFPAY ==
--- OUTSIDE RECORDS SUMMARY | 2024-01-16 10:29 | XMS_ITS | Continuity of Care Document ---
Author Organization [facility] Address [address] [place] [id number]- Care Team Providers Care Yarn Handler Name Role Phone Darell Zacarias DO Primary Care Physician Encounter [facility] [id number] Date(s): 10/31/23 - 11/30/[address] [id number] Attending Physician: Admpipe, Felice Admitting Physician: Admtr, Ar8 Referring Physician: Admtr, Ar8 Allergies, Adverse Reactions, Alerts Substance Reaction Severity Status sulfa drugs Active Immunizations Given and Recorded Vaccine Date Status Refusal Reason influenza virus vaccine, inactivated 12/20/22 Daniel rded influenza virus vaccine, inactivated 01/30/22 Daniel rded SARS-CoV-2(COVID-19)mRNA-LNP vac(not074) 12/20/22 Recorded [id number] bivalent booster vax 01/30/22 Recorded SARS-CoV-2 (COVID-19) mRNA-1273 vaccine 02/03/21 R ecorded SARS-CoV-2 (COVID-19) mRNA-1273 vaccine 07/03/20 R ecorded SARS-CoV-2 (COVID-19) mRNA-1273 vaccine 06/03/20 R ecorded Medications Advil 200 mg oral tablet 2 tablet = 400 mg, By Mouth, Every 4 hours, PRN for pain, # 120 tablet, 0 Refills, Maintenance, 10/31/23 13:08:00 EDT, Tablet, Partial fill upon patient request if the prescription is for a schedule II opioid drug. Start Date: 10/31/23 Status: Ordered Flonase 1 sprays, Daily, 0 Refills, Maintenance, 11/29/14 7:54:46 Start Date: 11/29/14 Status: Ordered Multivitamin Daily, 0 Refills, Maintenance, 03/26/17 15:49:30 Start Date: 03/26/17 Status: Ordered Probiotic Formula 1 capsule, By Mouth, Daily, 0 Refills, Maintenance, 11/29/14 7:54:36 Start Date: 11/29/14 Status: Ordered Tumeric Tumeric, Refills 0, Maintenance, once a day, 10/31/23 13:07:00 EDT, Supply Start Date: 10/31/23 Status: Ordered Tylenol Extra Strength 500 mg oral tablet 1 tablet = 500 mg, By Mouth, Every 4 hours, PRN as needed for pain, # 24 tablet, 0 Refills, Maintenance, 10/31/23 13:07:00 EDT, Tablet, Partial fill upon patient request if the prescription is for a schedule II opioid drug. Start Date: 10/31/23 Status: Ordered Voltaren Arthritis Pain 1% topical gel = 2 Gm, Topically, 4 times a day, 0 Refills, Maintenance, 10/31/23 13:07:00 EDT, Partial fill upon patient request if the prescription is for a schedule II opioid drug. Start Date: 10/31/23 Status: Ordered Problem List Condition Confirmation Course Effective Dates Status Health St atus Informant Anxiety Confirmed Active Bradycardia Confirmed Active Hx of colonic polyp Confirmed Active Adult general medical exam Confirmed Active Screening cholesterol level Confirmed Active Social History Social History Type Response Smoking Status Never (less than 100 in lifetime) entered on: 04/18/20 Sex Patient Care team information Care Team Personnel Name: Darell Zacarias DO Position: [facility] Physician - Primary Care Member Role: PCP Address: Address: [address] [place] [address] [place] [address]- Name: Emerald GUSTAFSON, Madhuri Position: [facility] Physician - Endocrinology Member Role: Lifetime Consulting Physician Care Team Related Persons Name: REVA TURPIN Address: home [address] [place] [address] Name: FANTA VERONICA Address: home [address] [place] [id number]
[2024-01-16 10:32] VITALS: BP 131/67; PULSE 54; O2SAT 100
--- NOTE | 2024-01-16 10:32 | A.OFFVIS_ITS ---
Vital Signs 01/16/24 10:32 01/16/24 10:57 BP 131/67 143/69 H Blood Pressure Location Rt brachial Lt brachial Position Sitting Sitting Pulse 54 53 Pulse Source Pulse Oximeter Pulse Oximeter Pulse Oximetry (%) 100 100 Oxygen Delivery Method Room Air Room Air Intake Visit Reasons: right theraputic SIJ inj Allergies Sulfa (Sulfonamide Antibiotics) Allergy (Unknown, Verified 12/11/23 11:14) Unknown HPI HPI right theraputic SIJ inj: Details: Patient presents for scheduled procedure. Denies any recent cough, cold, infection, fever or other significant changes in medical history since last office visit. [facility] Medical History (Updated 12/11/23 @ 11:38 by Alonso Terrell MD) Disorder of sacrum Lumbosacral spondylosis without myelopathy Surgical History (Updated 10/18/22 @ 11:53 by Alonso Terrell MD) History of lumbar laminectomy Social History (Updated 10/15/22 @ 09:42 by Brenda Olvera) Alcohol intake: current Alcohol type: beer and wine Patient Tobacco Use Status: Never used Tobacco Physical Exam Vital Signs: Last Vital Signs Pulse 53 01/16/24 10:57 BP 143/69 H 01/16/24 10:57 Pulse Ox 100 01/16/24 10:57 Oxygen Delivery Method Room Air 01/16/24 10:57 Office Procedures AMB Joint Injection/Aspiration Joint Injection/Aspiration Details: Therapeutic Sacroiliac Joint Injection, right The procedure, its benefits, and its risks were explained and written informed consent was obtained from the patient. Immediately prior to starting the procedure, a time-out safety check was conducted. The patient's identifica tion, procedure name, procedure site, and procedure laterality were confirmed with the patient. ? Patient was placed prone on the fluoroscopy table and the lumbosacral area was prepped using ChloraPrep and draped with sterile drapein standard fashion. The C-arm was rotated in a contralateral oblique fashion until the medial border of the iliac crest no longer foreshadowed the posterior sacroiliac joint line. The skin and subcutaneous tissue was anesthetized using 1 mL of 0.75% plain lidocaine with 1.5-inch 25-gauge needle in the middle region of the joint line.? A 3.5-inch 22-gauge spinal needle with small bend on the tip was slowly advanced towards the joint line, coaxial to the x-ray beam. Once bony content was obtained, the needle was easily slid into the intra-articular space.? Intra-a rticular needle position was confirmed using lateral fluoroscopy.? A total volume of 2.5mL of solution containing 40 mg triamcinolone and rest 0.5% of ropivacaine was injected intra-articularly. The stylet was reinserted and needle was removed. The patient tolerated the procedure well. Patient denied any lower extremity weakness or numbness. Patient was observed for 30 min and was discharged after fulfilling the standard discharge criteria. Coding 11578 - Sacroiliac Procedure code (CPT) selection complete Office Meds Kenalog 40 mg/mL suspension for injection Performing Provider: Alonso Terrell MD Performing Location: [facility] Documented (not given) by: Alonso Terrell MD on 01/16/24 12:51 Dose Route Admin Location Dispensed Lot Number Expiration Date [facility] Certified Surgical Tech/First Assistant 40 mg intra-articular mL Assessment & Plan Assessment & Plan (1) Sacroiliac dysfunction: Code(s): M53.3 - Sacrococcygeal disorders, not elsewhere classified Category: Medical Plan Patient is status post therapeutic right SI joint injection. Patient tolerated procedure well and was discharged home in stable condition with discharge instructions. All questions were answered. We will follow-up via telephone or in clinic to assess response to therapy. A follow-up appointment was made during today's visit. Orders: Orders FL guidance in treatment room Today Michelle Ivey APRN, PUBLIC SAFETY OFFICER M53.3 - Sacrococcygeal disorders, not elsewhere classified AMB Joint Injection/Aspiration Today Alonso Terrell MD M53.3 - Sacrococcygeal disorders, not elsewhere classified Medications: New Kenalog (triamcinolone acetonide) 40 mg intra-articular ONCE 1 mL 0RF NS Alonso Terrell MD M53.3 - Sacrococcygeal disorders, not elsewhere classified Coding Level of Care Code Procedure Only Diagnoses Sacroiliac dysfunction M53.3 CPT Codes Coding - Joint 9: 24351 - Sacroiliac ([id number])
[2024-01-16 10:57] VITALS: BP 143/69; PULSE 53; O2SAT 100
== END 2024-01-16 11:01 | disposition home or self-care (01) ==
LOC: HO.PMCPRC 10:27
PROVIDERS: PCP Family Medicine; Visit Provider Internal Medicine
DX: M53.3 Sacrococcygeal disorders, not elsewhere classified (principal)
CPT/HCPCS: 27096

== ENCOUNTER 2024-07-24 10:28 | Outpatient (AMB) | payer OTHER, SELFPAY ==
--- NOTE | 2024-07-24 10:35 | MHC.OFFVIS ---
Vital Signs 07/24/24 10:36 Height 5 ft 4 in Weight 124 lb BMI 21.3 BP 184/85 H Blood Pressure Location Lt brachial Position Sitting Respiration 16 Pulse 69 Pulse Source Pulse Oximeter Pulse Oximetry (%) 95 Oxygen Delivery Method Room Air Intake Visit Reasons: FU patient Req pain increasing Group Captain Required: No Allergies Sulfa (Sulfonamide Antibiotics) Allergy (Unknown, Verified 07/24/24 10:37) Unknown Medication List - Last Reconciled 07/24/24 by Sandy Huber LPN arnica 20% ea topical diclofenac sodium 1% (Voltaren Arthritis Pain) 2 grams topical QID gabapentin 300 mg PO BEDTIME ibuprofen (Advil Liqui-Gel) 400 mg PO Q8H HPI HPI FU patient Req pain increasing: Details: History of Present Illness The patient is a 59-year-old female presenting with a follow-up for her chronic SI joint pain and right hip pain. The symptoms have persisted despite prior interventions, including injections which provided temporary relief. Recently, the patient experienced an exacerbation of symptoms primarily localized to the right hip region, with an ache aggravated by physical activities such as playing pickleball. Over the past few days she endorses increasing cramping in right posterior thigh and calf, with pain radiating to the toes on the right side. The patient's past medical history includes spinal stenosis at L3-4, observed on a past MRI, as well as a spinal fusion at L4-5. Previous interventions, including facet joint injections, initially provided relief but their effectiveness has waned over time. The patient expresses a preference for non-pharmacologic interventions and uses zcoe-byf-nsrllqh medications to manage her symptoms. No medication trials have been undertaken with her gabapentin prescription due to apprehensions about adverse events during travel. Pain Description - Onset and Timing: Chronic, worsened over the last month - Quality and Character: Aching discomfort - Primary Location: Right hip area - Areas of Radiation: Right thigh, calf, toes - Exacerbating Factors: Physical activity, particularly playing pickleball - Relieving Factors: Oirm-tts-rolrsgp medication, use of a TENS machine, massage - Interferes with: Sleep, reduced pickleball activity due to discomfort Physical Exam - Appears afebrile. - Alert and oriented. - Mood and affect appropriate. - Follows and participates in conversation appropriately. - Respiratory effort is unlabored. Results - Tests and Diagnostics: Previous MRI indicating spinal stenosis at L3-4 above fusion site; No new findings from recent hip x-ray Pain Management - Affect: Pain impacts sleep and sports activities - Analgesia: Utilizes acetaminophen or ibuprofen occasionally - Adverse Effects: Concerns about potential medication side effects - Activities of Daily Living: Discomfort affects physical activities and sleep - Aberrant Drug Related Behaviors: Not discussed [facility] Medical History (Updated 08/03/24 @ 13:40 by Alonso Terrell MD) Disorder of sacrum Lumbosacral spondylosis without myelopathy Surgical History (Updated 10/18/22 @ 11:53 by Alonso Terrell MD) History of lumbar laminectomy Social History (Updated 10/15/22 @ 09:42 by Brenda Olvera) Alcohol intake: current Alcohol type: beer and wine Patient Tobacco Use Status: Never used Tobacco Physical Exam Vital Signs: Last Vital Signs Pulse 69 07/24/24 10:36 Resp 16 07/24/24 10:36 BP 184/85 H 07/24/24 10:36 Pulse Ox 95 07/24/24 10:36 Oxygen Delivery Method Room Air 07/24/24 10:36 BMI result Body Mass Index 21.3 Assessment & Plan Assessment & Plan (1) Post laminectomy syndrome: Code(s): M96.1 - Postlaminectomy syndrome, not elsewhere classified Category: Medical (2) Lumbar radiculopathy: Code(s): M54.16 - Radiculopathy, lumbar region Category: Medical Plan Plan - Right L3/4 TFESI for right LE radicular pain symptoms - Use acetaminophen or ibuprofen for pain management, adjusting as needed for symptom relief - Consider gabapentin for neuropathic pain, weighing benefits against potential side effects - Utilize tramadol on an as-needed basis for acute symptom relief, particularly at night - Evaluate the option of a neurostimulator based on further symptom evolution Patient was informed and verbally consented to the use of an ambient scribe for clinic note documentation during this visit. Discussion Notes During our discussion, I reviewed the patient?s history of chronic SI joint pain and right hip discomfort. We explored various management strategies, highlighting the benefits and challenges of using sbke-oxy-oeuushj medications versus prescription options such as gabapentin and tramadol. I discussed the potential of tramadol as a short-term option and advised on its controlled status and possible habit-forming nature. The patient expressed an understanding of these recommendations, and future options like a neurostimulator were acknowledged if symptoms fail to improve with current management. Patient Instructions - Use acetaminophen or ibuprofen for pain relief as needed. - Consider trying gabapentin if jjou-cwf-rhdqlnw meds are insufficient. - Use tramadol cautiously for pain at night if necessary. - Keep track of any increase in pain or new symptoms, especially if pain begins to radiate down your legs. - Return for evaluation if symptoms worsen, particularly if you experience new leg pain or increased back discomfort. - Maintain physical activity within comfort levels, but avoid repetitive strain. Coding Level of Care Code Est Pt Level 4 (35158) Diagnoses Post laminectomy syndrome M96.1 Lumbar radiculopathy M54.16
[2024-07-24 10:36] VITALS: BP 184/85; PULSE 69; RESP 16; O2SAT 95; BMI 21.3
--- OUTSIDE RECORDS SUMMARY | 2024-07-24 10:58 | XMS_ITS | Clinical Summary ---
Author Organization [facility] Address [address] [place] [address] Care Team Providers Care Fiberglass Boat Maker Name Role Phone Darell Zacarias MD Primary Care Provider [phone] Allergies Active Allergy Reactions Criticality Noted Date Comments Sulfa Antibiotics 05/31/2020 Medications Medication Sig Dispensed Refills Start Date End Date Status fluticasone (FLONASE) 50 MCG/ACT nasal spray spray/apply 1 spray in each nostril daily. 0 Active Multiple Vitamin (MULTIVITAMIN ADULT PO) Take by mouth daily. 0 Active Bacillus Coagulans-Inulin (PROBIOTIC FORMULA PO) Take by mouth. 0 Active Active Problems No known active problems Social History Tobacco Use Types Packs/Day Years Used Date Smoking Tobacco: Never Smokeless Tobacco: Never Alcohol Use Standard Drinks/Week Comments Yes 0 (1 standard drink = 0.6 oz pur e alcohol) Sex and Gender Information Value Date Recorded Sex Assigned at Not on file Gender Identity Not on file Sexual Orientation Not on file Job Start Date Occupation Industry Not on file Not on file Not on file Last Filed Vital Signs Vital Sign Reading Time Taken Comments Blood Pressure 118/82 06/01/2020 2:19 PM EDT Pulse 55 06/01/2020 2:19 PM EDT Temperature 36.2 ??C (97.2 ??F) 06/01/2020 2:19 PM ED T Respiratory Rate - - Oxygen Saturation - - Inhaled Oxygen Concentration - - Weight 66.2 kg (146 lb) 06/01/2020 2:19 PM EDT Height 162.6 cm (5' 4 ) 06/01/2020 2:19 PM EDT Body Mass Index 25.06 06/01/2020 2:19 PM EDT Plan of Treatment Health Maintenance Due Date Last Done Comments Hepatitis C Screening 1965 COVID-19 Vaccine (#1) 1963 Depression Screening 1975 BMI Counseling 1981 Preventative Health Evaluation 1981 DTap / Tdap / Td (1 - Tdap) 1982 Cervical Cancer Screening (P ap Smear) 1984 Colon Cancer Screening (Colonoscopy) 2008 Breast Cancer Screening (Mammogram) 2013 Shingrix-Zoster Vaccine (1 of 2) 2013 Influenza Vaccine (#1) 2023 RSV Adult > 60+ Yrs or Pregn ant (1 - 1-dose 75+ series) 2038 Hepatitis B Vaccines Aged Out No long er eligible based on patient's age to complete this topic Pneumococcal Vaccine Aged Out No long er eligible based on patient's age to complete this topic RSV Ped < 20 months Aged Out No longe r eligible based on patient's age to complete this topic Care Teams Fiberglass Boat Maker Relationship Specialty Start Date End Date Darell Zacarias MD [address] [place] [address] PCP - General Family Medicine 05/05/20
--- OUTSIDE RECORDS SUMMARY | 2024-07-24 10:58 | XMS_ITS | Data Portability ---
Author Organization [facility] Lizette Gao [facility] [place] Address [address] [place] [address] Care Team Providers Care Engine Hostler Name Role Phone MAEVE UQINTANILLA Primary Care Provider [phone] MAEVE QUINTANILLA Referring Provider Assessment Encounter Date Assessment Date Assessment LastModified by Organization Details LastModified Time 06/28/2022 06/28/2022 I do not see any evidence of a stress fracture or fracture of her fifth metatarsal where her pain is. However, she certainly could be developing a stress fracture consistent with a Dela Cruz fracture. She did discuss that she is feeling better. She would like to try and return to activity as quickly as possible. We discussed that if she is feeling better, she may certainly gradually advance her activities, but if she has any recurrence of her symptoms or worsening pain, I would recommend immobilization in a boot. She will follow-up in 3 weeks for repeat evaluation. If she has not improved, I would consider an MRI to evaluate for a stress fracture. Not available 07/01/2022 19:50:42 07/19/2022 07/19/2022 She has made approximately 50% improvement and has been able to return to activity. We can monitor her symptoms at this time. She can continue to advance her activity as tolerated. If she has any new or worsening symptoms she will contact the office and we can reevaluate. Ice, elevation and hbyv-dnh-dvfkthz analgesics as needed. Not available 07/19/2022 09:33:53 Plan of Treatment Reminders Order Date Submit Date Provider Last Modified By Organization Details Last Modified Time Details Appointments None record ed. Lab None record ed. Referral None record ed. Procedures None record ed. Surgeries None record ed. Imaging XR, foot, 3 or more view 023 06/29/19 23 [facility], [address], [place], [address], 3 16:22:08 Medication Orders None record ed. Patient TargetsNo targets recorded. Patient Instructions Encounter Date Encounter Id Patient Instructions Last Modified By Organization Details Last Modified Time 06/28/2022 [id number] views of the right foot obtained weightbearing demonstrate no acute osseous abnormalities. There is no sign of stress fracture or fifth metatarsal fracture. Not available 07/01/2022 19:48:56 Reason for Referral None Reported. Procedures Surgical History Date Name Laterality Status Provider Name and Address Organization Details Recorded Time back fusion completed [facility] 06/28/2022 14:04:08 Imaging Results None recorded. Procedure Notes None recorded. Medical Equipment None Reported. Allergies Allergen ID Allergen Name Allergen Category Reaction Reaction Severity Criticality Documentation Date Start Date Code Code System Note Provider Name and Address Organization Details Recorded Time 2278 Substance with sulfonami de structure and antibacte rial mechanism of action (substanc e) medicatio n Not available Not available Not available 06/28/2022 69675 8003 SNOMED [facility] 3 14:03:06 Medications Name Sig Start Date Stop Date Status Note LastModified by Organization Details LastModified Time methylpredn isolone 4 mg tablets in a dose pack FOLLOW PACKAGE DIRECTION S 07/19 completed Not Available Not Available Not Available Flovent Diskus 50 mcg/actuati on powder for inhalation INHALE 1 PUFF BY MOUTH TWICE DAILY 07/19 completed Not Available Not Available Not Available BinaxNOW COVID-19 Ag Self Test kit TEST DIRECTED TODAY active Not Available Not Available No t Available Vitals Date Recorded Body weight Body mass index (BMI) Body height Provider Name and Address Organization Details Last Updated DateTime 06/28/2022 87718.38 g 23.7 kg/m2 160.02 cm [facility] 06/28/2022 14:03:23 Date Recorded Body height Body mass index (BMI) Body weight Provider Name and Address Organization Details Last Updated DateTime 07/19/2022 160.02 cm 23.7 kg/m2 82294.38 g [facility] 07/19/2022 09:13:20 Social History Question Answer Notes LastModified by Organeric leonard Details LastModified Time Tobacco Smoking Status Never Smoker [facility] null, [facility] 06/28/2022 14:03:39 What Is Your Level Of Alcohol Consumption? Occasional Information not available 06/28/2022 How Many Times Per Week Do You Consume Alcohol? 3-4 Times Per Week Information not available 06/28/2022 Sex: Unknown Functional Status None recorded. Mental Status None recorded. Family History Nothing Reported. Medical History Condition Response Coronary Artery Disease N Gout N Hyperthyroidism N MRSA N Blood Transfusion N Emphysema N Depression N COPD N Hypothyroidism N Pacemaker N Vascular Disease N Gastrointestinal Disease N Anxiety Disorder N Autoimmune disease N Arthritis N Cancer N Stroke N High Cholesterol N Neurologic Disorder N Liver Disease N Organ Transplant N Rheumatoid Arthritis N Arrhythmia N Fibromyalgia N Kidney Disease N Allergies/Hayfever N Adverse Reaction to Anesthesia N Thyroid Problems N Anemia N Brain Injury N Heart Attack ([place]) N Osteopenia N Diabetes N Bleeding Disorder N Seizures/Epilepsy N AIDS/HIV N Congestive Heart Failure (CHF) N Asthma N Amputation N Reflux/GERD N Sleep Apnea N Hepatitis N Aneurysm N Heart Disease N Pulmonary Embolism N Hypertension N Osteoporosis N Gynecological HistoryNo gynecological history recorded. Obstetrics History GPAL:G 0 P 0 0 0 0 Past Encounters Encounter ID Performer Location Encounter Start Date Encounter Closed Date Diagnosis/Indication Diagnosis SNOMED-CT Code Diagnosis ICD10 Code Diagnosis Note [id number] MD NORA Daniel [address] [address] 06/28/2022 13:35:27 06/28/2022 14:53:39 Pain in right foot [id number] 16106 M79.671 [id number] MICHAEL SALAZAR [address] [address] 07/19/2022 09:08:46 07/19/2022 09:32:50 Pain in right foot 2688503036 44411 M79.671 Health Concerns Section Related Observation LastModified by Organization Detai ls LastModified Time None Recorded Concern Status LastModified by Organization Details LastModified Time None Recorded Advance Directives Directive None Recorded Payers Encounter Date Sequence Insurance Name Policy Number Policy Galvez Covered Member ID Galvez Member ID Guarantor Name 06/28/2022 1 [facility] [id number] Laura A Baitler [id number] Laura Baitler 07/19/2022 1 [facility] (O) [id number] Laura A Baitler [id number] Laura Baitler Notes Date Note Type Note Provider Name and Address Organization Details Recorded Time 06/28/2022 text/html Laura hahn is a 57-year-old female who presents today for new patient evaluation regarding her right foot. She reports that approximately 2 weeks ago, she was playing pickle ball she began experiencing pain over her fifth metatarsal base. She stopped playing pickle ball and has been riding her bike which has not bothered her, but she feels like it continues to be bothersome when she stands for long period of time or if she is shifting her weight to the lateral aspect of her right foot. Her pain is aching and a 3-5 out of 10. It is mild and intermittent on the same. She has tried Arnica and ibuprofen as well as KT tape. She is otherwise healthy. She does not smoke. Drinks 4 drinks a week. She is retired. Ana Brizuela MD [address], [place], [address], [facility] 07/01/2022 19:51:02 07/19/2022 text/html Laura hahn is a 57-year-old female returns to the office today for follow-up evaluation regarding the right foot. She reports she is 50% improved since her last visit. She has been able to continue to play pickle ball with very little discomfort. She is utilizing an ASO ankle brace which does provide support. She also notes that about a week after her last visit she underwent a right knee cortisone injection and this actually relieved majority of her pain at the foot. She reports a 3/10 pain today but again this is mild and improving. Advil or Aleve provide relief when taken. From 06/28/22: who presents today for new patient evaluation regarding her right foot. She reports that approximately 2 weeks ago, she was playing pickle ball she began experiencing pain over her fifth metatarsal base. She stopped playing pickle ball and has been riding her bike which has not bothered her, but she feels like it continues to be bothersome when she stands for long period of time or if she is shifting her weight to the lateral aspect of her right foot. Her pain is aching and a 3-5 out of 10. It is mild and intermittent on the same. She has tried Arnica and ibuprofen as well as KT tape. She is otherwise healthy. She does not smoke. Drinks 4 drinks a week. She is retired. MEGHAN HOOPER PA-C [address], [place], [address], [facility] 07/19/2022 09:34:17 OBGyn Episode No OBEpisode recorded.
== END 2024-07-24 11:15 | disposition home or self-care (01) ==
LOC: HO.PMC 10:28
PROVIDERS: PCP Family Medicine; Visit Provider Internal Medicine
DX: M96.1 Postlaminectomy syndrome, not elsewhere classified (principal); M54.16 Radiculopathy, lumbar region
CPT/HCPCS: 99214

== ENCOUNTER 2024-08-20 06:05 | Outpatient (REF) | payer OTHER, SELFPAY ==
--- NOTE | ~2024-08-20 | FL_ITS ---
EXAMINATION: FL GUIDANCE ONLY HISTORY: M54.16 - Radiculopathy, lumbar region COMPARISON: None available. TECHNIQUE: Fluoroscopy time: 10.3 seconds. Cumulative Dose: 3.3393 mGy. DAP: 0.3217 mGym2 Images: 2. FINDINGS: Fluoroscopic spot films of the lumbar spine demonstrate a needle and contrast material in the region of an L3-4 facet joint. FL/FL guidance in treatment room IMPRESSION: Fluoroscopy during procedure. Please see procedure report for additional information. Electronically signed by: Rell Patricio MD 08/20/2024 02:21 PM EDT
--- OUTSIDE RECORDS SUMMARY | 2024-08-20 06:07 | XMS_ITS | Data Portability ---
Author Organization [facility] Lizette Gao [facility] [place] Address [address] [place] [address] Care Team Providers Care Roll Line Operator Name Role Phone MAEVE QUINTANILLA Primary Care Provider [phone] MAEVE QUINTANILLA Referring Provider Assessment Encounter Date [...] and we can reevaluate. Ice, elevation and buyj-rxh-cbtoqox analgesics as needed. [email or web address] Not available 07/19/2022 09:33:53 Plan of Treatment Reminders Order Date Submit Date Provider Last Modified By Organization Details Last Modified Time Details Appointments None record ed. Lab None record ed. Referral None record ed. Procedures None record ed. Surgeries None record ed. Imaging XR, foot, 3 or more view 023 06/29/19 23 [email or web address] [facility], [address], [place], [address], 3 16:22:08 Medication Orders None record ed. [...] Recorded Time back fusion completed [facility] 06/28/2022 14:04:08 Imaging Results None [...] Not available Not available Not available 06/28/2022 [id number] [facility] 3 14:03:06 Medications Name Sig [...] Address Organization Details Last Updated DateTime 06/28/2022 98011.38 g 23.7 kg/m2 160.[address] [facility] 06/28/2022 14:03:23 Date Recorded Body height Body mass index (BMI) Body weight Provider Name and Address Organization Details Last Updated DateTime 07/19/2022 160.02 cm 23.7 kg/m2 15293.[address] [facility], 07/19/2022 09:13:20 Social History None recorded. Functional Status Question Answer Note LastModified by Organizat ion Details LastModified Time How many times per week do you consume alcohol? 3-4 times per week Information not available 06/28/2022 What is your level of alcohol consumption? Occasional Information not available 06/28/2022 Mental Status None recorded. Family History Nothing [...] Anemia N Brain Injury N Heart Attack ([place]) N Osteopenia N Diabetes N Bleeding Disorder [...] Diagnosis ICD10 Code Diagnosis Note [id number] MD DARCI [address] [address] 06/28/2022 13:35:27 06/28/2022 14:53:39 Pain in right foot [id number] 98494 M79.671 [id number] MICHAEL SALAZAR [place] [address] [address] 07/19/2022 09:08:46 07/19/2022 09:32:50 Pain in right foot [id number] 65490 M79.671 Health Concerns Section Related Observation LastModified by Organization Detai ls LastModified Time None Recorded Concern Status LastModified by Organization Details LastModified Time None Recorded Advance Directives Directive None Recorded Payers Encounter Date Sequence Insurance Name Policy Number Policy Galvez Covered Member ID Glavez Member ID Guarantor Name 06/28/2022 1 [facility] (O) [id number] Laura Hernandez [id number] Laura Hernandez 07/19/2022 1 [facility] (PP[facility] [id number] Laura Hernandez [id number] Laura Hernandez Notes Date Note Type Note Provider Name [...] Ana Brizuela MD [address], [place], [address], [facility] 07/01/2022 19:51:02 07/19/2022 text/html Laura hahn [...] MEGHAN HOOPER PA-C [address], [place], [address], [place] [facility] 07/19/2022 09:34:17 OBGyn Episode No OBEpisode recorded.
== END 2024-08-20 06:06 | disposition home or self-care (01) ==
LOC: CF 06:05
PROVIDERS: Visit Provider Internal Medicine
DX: M54.16 Radiculopathy, lumbar region (principal)
CPT/HCPCS: 64483; J1100; J2003; Q9967

== ENCOUNTER 2024-08-20 09:23 | Outpatient (AMB) | payer OTHER, SELFPAY ==
[2024-08-20 09:32] VITALS: BP 122/66; PULSE 53; RESP 16; O2SAT 100
--- NOTE | 2024-08-20 09:32 | MHC.OFFVIS ---
Vital Signs 08/20/24 09:32 08/20/24 10:09 BP 122/66 114/67 Blood Pressure Location Lt brachial Lt brachial Position Sitting Sitting Respiration 16 16 Pulse 53 59 Pulse Source Pulse Oximeter Pulse Oximeter Pulse Oximetry (%) 100 99 Oxygen Delivery Method Room Air Room Air Intake Visit Reasons: Right L3-L4 TFESI Cad Developer Required: No Allergies Sulfa (Sulfonamide Antibiotics) Allergy (Unknown, Verified 08/20/24 09:32) Unknown Medication List - Last Reconciled 08/20/24 by Sandy Huber LPN arnica 20% ea topical diclofenac sodium 1% (Voltaren Arthritis Pain) 2 grams topical QID gabapentin 300 mg PO BEDTIME ibuprofen (Advil Liqui-Gel) 400 mg PO Q8H HPI HPI Right L3-L4 TFESI: Details: Patient presents for scheduled procedure. Denies any recent cough, cold, infection, fever or other significant changes in medical history since last office visit. [facility] Medical History (Updated 08/03/24 @ 13:40 by Alonso Terrell MD) Disorder of sacrum Lumbosacral spondylosis without myelopathy Surgical History (Updated 10/18/22 @ 11:53 by Alonso Terrell MD) History of lumbar laminectomy Social History (Updated 10/15/22 @ 09:42 by Brenda Olvera) Alcohol intake: current Alcohol type: beer and wine Patient Tobacco Use Status: Never used Tobacco Physical Exam Vital Signs: Last Vital Signs Pulse 59 08/20/24 10:09 Resp 16 08/20/24 10:09 BP 114/67 08/20/24 10:09 Pulse Ox 99 08/20/24 10:09 Oxygen Delivery Method Room Air 08/20/24 10:09 Office Procedures Details: Transforaminal epidural steroid injection, right L3 After obtaining written consent, pre-procedure blood pressure and heart rate were stable and recorded in the nursing record. The patient was placed in the prone position on the fluoroscopy table. The lumbosacral area was prepped with chloraprep, allowed to dry and draped in sterile fashion. Using fluoroscopy, the skin overlying our target was anesthetized with 0.5% lidocaine. A 22 gauge 3.5 inch spinal needle was advanced to the safe triangle in the upper pole of the right L3 foramen. No paresthesias were elicited with needle placement and aspiration was negative for blood and CSF. Correct needle position was confirmed with approximately 1 ml contrast dye (Omnipaque 180 mg/ml) injected under real-time fluoroscopy. No evidence of vascular or intrathecal uptake was seen and there was both epidural and peripheral spread of the contrast agent. 10 mg dexamethasone plus 1 ml containing 0.5% lidocaine was slowly injected. The needle was flushed and removed. the same procedure was repeated for the remaining levels. The skin was cleansed and a sterile bandages were applied. The patient tolerated the procedure well and no complications were encountered. Following the procedure the patient's vital signs were stable. The patient was discharged home in good condition with post-procedural instructions. Time Out: Immediately prior to the procedure, the following was verbally confirmed that there is a signed consent form and that the correct patient, planned procedure, site and side are consistent with documentation and that necessary equipment and/or blood products are available prior to the start of the case. Complications: none EBL: <5 cc 15044 - Lumbar/Sacral Procedure code (CPT) selection complete Assessment & Plan Assessment & Plan (1) Lumbar radiculopathy: Code(s): M54.16 - Radiculopathy, lumbar region Category: Medical Plan Patient is status post right L3 TFESI. Patient tolerated procedure well and was discharged home in stable condition with discharge instructions. All questions were answered. We will follow-up via telephone or in clinic to assess response to therapy. A follow-up appointment was made during today's visit. Orders: Orders AMB Transforaminal Epidural Steroid Injection 08/20/24 Alonso Terrell MD M54.16 - Radiculopathy, lumbar region FL guidance in treatment room 08/20/24 Michelle Ivey APRN, CIVIL ENGINEERING SPECIALIST M54.16 - Radiculopathy, lumbar region Coding Level of Care Code Procedure Only Diagnoses Lumbar radiculopathy M54.16 CPT Codes Transforaminal Epidural Steroid Inj - TESI 3: 87443 - Lumbar/Sacral ([id number])
[2024-08-20 10:09] VITALS: BP 114/67; PULSE 59; RESP 16; O2SAT 99
== END 2024-08-20 10:08 | disposition home or self-care (01) ==
LOC: HO.PMCPRC 09:23
PROVIDERS: PCP Family Medicine; Visit Provider Internal Medicine
DX: M54.16 Radiculopathy, lumbar region (principal)
CPT/HCPCS: 64483

== ENCOUNTER → 2024-09-29 09:05 | Outpatient (BNV) | payer OTHER, SELFPAY | PROVIDERS: PCP Nurse Practitioner; Visit Provider Radiology Diagnostic Radiology | DX: M54.16 Radiculopathy, lumbar region (principal) | CPT/HCPCS: 72158 ==

== ENCOUNTER 2024-09-29 09:08 | Outpatient (REF) | payer OTHER, SELFPAY ==
--- NOTE | ~2024-09-29 | MR_ITS ---
EXAMINATION: MR LUMBAR SPINE WITHOUT AND WITH CONTRAST CLINICAL INFORMATION: Post laminectomy syndrome COMPARISON: None available. TECHNIQUE: MRI of the lumbar spine was obtained using routine sequences with and without contrast. Intravenous contrast: Magnevist 6.0 mL no reported immediate complications. FINDINGS: Left rib-bearing vertebra labeled T12. Paramagnetic field distortion secondary to metallic hardware posterior elements of L4-5. No bone marrow STIR signal abnormality. Marginal osteophyte formation, decreased intervertebral disc height and signal at T11-12, L3-4 and to a lesser extent L5-S1 level. Grade 1 anterolisthesis L3-4 and L4-5 levels. Dural ectasia posterior central spinal canal L4-5. No epidural abscess or fluid collections. No pseudomeningocele. No grouping or clumping of the neural elements of the thecal sac. Edema pattern in the fat planes of the lower lumbosacral region from L5 to the sacrum without fluid collection. The conus medullaris ends at inferior endplate of L1 with normal signal. No abnormal enhancement within the prevertebral compartment or the neural elements of the thecal sac. T12-L1: No disc herniation. No neuroforamina stenosis. L1-2: Broad-based disc bulging. Facet joint and ligamentum flavum hypertrophy. No compression upon neural elements. L2-3: Broad-based disc bulging. Facet joint and ligamentum flavum hypertrophy. 1 mm fluid signal characteristic in the medial left facet joint. Central spinal canal narrowing and bilateral neuroforamina narrowing likely encroaching the neural elements. L3-4: Broad-based disc bulging. Facet joint and ligamentum flavum hypertrophy. CSF effacement of the thecal sac central spinal canal and bilateral neuroforamina stenosis compressing the neural elements. L4-5: Postsurgical changes. Bilateral laminectomy. No central spinal canal or gross neuroforamina stenosis. L5-S1: Broad-based disc bulging. Facet joint and ligamentum flavum hypertrophy. Central spinal canal stenosis and bilateral neuroforamina narrowing likely encroaching the S1 nerve roots. No prevertebral compartment mass or fluid collection. There is a 2 mm isointense T2 and T1 enhancing nodule in the left adrenal gland demonstrated 304 and 361 measuring bowel ileus in the noncontrast and IV contrast enhanced sequences. MR/MR lumbar spine wo/w con IMPRESSION: No epidural fluid collections or masses or abnormal enhancement. No arachnoiditis. No pseudomeningoceles. Central spinal canal and bilateral neuroforamina stenosis compressing the neural elements at L3-4 on multifocal basis. Mild to moderate central spinal canal stenosis on a degenerative basis at L5-S1 encroaching the S1 nerve roots. 8 mm nodular lesion, left adrenal gland. Electronically signed by: Vinicius Valladares MD 09/29/2024 10:34 AM EDT
--- OUTSIDE RECORDS SUMMARY | 2024-09-29 09:32 | XMS_ITS ---
Author Name [facility] Organization Unknown Encounters Encounter Type Encounter Reason Primary Diagnosis Location Date Ambulatory [facility] [place] 08/31/2022 Ambulatory [facility] [place] 07/27/2022 Ambulatory [facility] [place] 07/19/2022 Ambulatory [facility] [place] 07/19/2022 Ambulatory [facility] [place] 07/19/2022
--- OUTSIDE RECORDS SUMMARY | 2024-09-29 09:32 | XMS_ITS | Data Portability ---
Author Organization [facility] Lizette Gao [facility] [place] Address [address] [place] [address] Care Team Providers Care Boat Designer Name Role Phone MAEVE QUINTANILLA Primary Care Provider [phone] MAEVE QUINTANILLA Referring Provider Assessment Encounter Date [...] and we can reevaluate. Ice, elevation and kyxg-xew-oncfefq analgesics as needed. [email or web address] Not available 07/19/2022 09:33:53 Plan of Treatment Reminders Order Date Submit Date Provider Last Modified By Organization Details Last Modified Time Details Appointments None record ed. Lab None record ed. Referral None record ed. Procedures None record ed. Surgeries None record ed. Imaging XR, foot, 3 or more view 023 06/29/19 23 [email or web address] [facility], [address], [place], [address], 16:22:08 Medication Orders None record ed. Patient [...] Recorded Time back fusion completed Marshall Osborn [facility], [facility] 06/28/2022 14:04:08 Imaging Results None recorded. Procedure Notes None recorded. Medical Equipment None Reported. Allergies Allergen ID Allergen Name Allergen Category Reaction Reaction Severity Criticality Documentation Date Start Date Code Code System Note Provider Name and Address Organization Details Recorded Time 227 Substance with sulfonami de structure and antibacte rial mechanism of action (substanc e) medicatio n Not available Not available Not available 06/28/2022 86139 8003 SNOMED Marshall vargas [facility] 14:03:06 Medications Name Sig Start Date Stop [...] Address Organization Details Last Updated DateTime 06/28/2022 24717.38 g 23.7 kg/m2 160.02 cm Marshall Osborn [facility] 06/28/2022 14:03:23 Date Recorded Body height Body mass index (BMI) Body weight Provider Name and Address Organization Details Last Updated DateTime 07/19/2022 160.02 cm 23.7 kg/m2 63093.[address] [facility] [place], 07/19/2022 09:13:20 Social History None recorded. Functional [...] Anemia N Brain Injury N Heart Attack ([place]) N Osteopenia N Diabetes N Bleeding Disorder [...] Code Diagnosis Note [id number] MD NORA Daniel [address] [address] 06/28/2022 13:35:27 06/28/2022 14:53:39 Pain in right foot [id number] 71222 M79.671 [id number] MICHAEL SALAZAR [address] [address] 07/19/2022 09:08:46 07/19/2022 09:32:50 Pain in right foot [id number] 27164 M79.671 Health Concerns Section Related Observation LastModified by Organization Detai ls LastModified Time None Recorded Concern Status LastModified by Organization Details LastModified Time None Recorded Advance Directives Directive None Recorded Payers Insurance Date Sequence Insurance Name Policy Number Policy Galvze Covered Member ID Galvez Member ID Guarantor Name 07/19/2022 1 [facility] [id number] Laura Hernandez [id number] Laura Hernandez Notes Date Note Type Note [...] Ana Brizuela MD [address], [place], [address], [facility] 07/01/2022 19:51:02 07/19/2022 text/html Laura hahn [...] drinks a week. She is retired. MEGHAN HOPOER PA-C [address], [place], [address], [facility] 07/19/2022 09:34:17 OBGyn Episode No OBEpisode recorded.
--- OUTSIDE RECORDS SUMMARY | 2024-09-29 09:32 | XMS_ITS | Clinical Summary ---
Author Organization [facility] Address [address] [place] [address] Care Team Providers Care Maintenance Advisor Name Role Phone Darell Zacarias MD Primary Care Provider [phone] Allergies Active Allergy Reactions Criticality Noted Date [...] 55 06/01/2020 2:19 PM EDT Temperature 36.2 C (97.2 F) 06/01/2020 2:19 PM EDT Respiratory Rate - - Oxygen Saturation - [...] (1 of 2) 2013 Influenza Vaccine (#1) 2024 RSV Adult > 60+ Yrs or Pregn [...] age to complete this topic Care Teams Maintenance Advisor Relationship Specialty Start Date End Date Darell Zacarias MD [address] [place] [address] PCP - General Family Medicine 05/05/20
== END 2024-09-29 09:09 | disposition home or self-care (01) ==
LOC: HO.MRI 09:08
PROVIDERS: PCP Nurse Practitioner; Visit Provider Internal Medicine
DX: M96.1 Postlaminectomy syndrome, not elsewhere classified (principal); M54.16 Radiculopathy, lumbar region
CPT/HCPCS: 72158; A9585

== ENCOUNTER 2024-10-05 09:58 | Outpatient (AMB) | payer OTHER, SELFPAY ==
--- OUTSIDE RECORDS SUMMARY | 2015-12-20 | XMS_ITS | Encounter Summary ---
Author Organization [facility] Address [address] [place] [address] Phone Care Team Providers Care Sprigger Name Role Phone Unavailable Primary Care Provider Unavailabl e Reason for Visit * MRI/CAT Scan - Closed Specialty Diagnoses / Procedures Referred By Contac t Referred To Contact Procedures MRI Spine (Neuro) Outside (No Interpretation) Juan C Appiah MD [address] [place] [address] Phone: tel: mailto:[email or web address] Referral ID Status Reason Start Date Expiration Date Visits Re quested Visits Authorized [id number] Closed 03/27/2016 03/27/2017 1 1 Encounter Details Date Type Department Care Team (Late st Contact Info) Description 12/20/2015 Hospital Encounter [facility] [address] [place] [address] Juan C Appiah MD [address] [place] [address] [email or web address] Social History Tobacco Use Types Packs/Day Years [...] Answer Date Recorded No 08/09/2022 No 08/09/2022 No 08/09/2022 Reliable internet access [...] Care Team (Late st Contact Info) Description 01/11/2025 10:10 AM EDT Office Visit [facility] [address] [place] [address] Juan C Ball, DO [address] [place] [address] [email or web address] documented as of this encounter Procedures Procedure Name Priority Date/Time Associated Diagnosis Comments MRI SPINE NEUROLOGIC FOCUS OUTSIDE (NO INTERPRETATION) Routine 12/20/2015 12:00 AM EDT documented in this encounter Results * MRI Spine (Neuro) Outside (No Interpretation) (12/20/2015 12:00 AM EDT) Narrative [facility]G INTERFACES - 03/27/2016 3:18 PM EST This study is for PACS storage only and not for interpretation. us Juan C Appiah MD IMG OUTSIDE IMAGING W/OUT INTE RPRETATION Final Result [facility] IMG INTERFACES documented in this encounter Visit Diagnoses Not on filedocumented in this encounter Additional Source Comments The information contained in this document represents components of the legal health record. It is not the complete legal health record.[facility]
--- OUTSIDE RECORDS SUMMARY | 2024-10-05 10:42 | XMS_ITS | Clinical Summary ---
Author Organization [facility] Address [address] [place] [address] Care Team Providers Care Filler Operator Name Role Phone Darell Zacarias MD Primary Care Provider [phone] Allergies Active Allergy Reactions Criticality Noted Date [...] age to complete this topic Care Teams Filler Operator Relationship Specialty Start Date End Date Darell Zacarias MD [address] [place] [address] PCP - General Family Medicine 05/05/20
--- OUTSIDE RECORDS SUMMARY | 2024-10-05 10:42 | XMS_ITS | Data Portability ---
Author Organization [facility] Lizette Gao [facility] [place] Address [address] [place] [address] Care Team Providers Care Director Regulatory Affairs Name Role Phone MAEVE QUINTANILLA Primary Care Provider MAEVE QUINTANILLA Referring Provider Assessment Encounter Date [...] and we can reevaluate. Ice, elevation and xxsk-szf-ualsxcc analgesics as needed. Not available 07/19/2022 09:33:53 Plan of Treatment Reminders Order Date Submit Date Provider Last Modified By Organization Details Last Modified Time Details Appointments None record ed. Lab None record ed. Referral None record ed. Procedures None record ed. Surgeries None record ed. Imaging XR, foot, 3 or more view 023 06/29/19 23 [email or web address] [facility] [place], [address], [place], [address], 16:22:08 Medication Orders None record ed. Patient [...] Recorded Time back fusion completed Marshall Osborn [facility], [facility] 06/28/2022 14:04:08 Imaging Results None [...] Not available Not available Not available 06/28/2022 77224 8003 SNOMED Marshall vargas [facility] 14:03:06 Medications Name Sig Start [...] Address Organization Details Last Updated DateTime 06/28/2022 13482.38 g 23.7 kg/m2 160.02 cm Marshall Osborn [facility] 06/28/2022 14:03:23 Date Recorded Body height Body mass index (BMI) Body weight Provider Name and Address Organization Details Last Updated DateTime 07/19/2022 160.02 cm 23.7 kg/m2 88299.[address] [facility] [place], 07/19/2022 09:13:20 Social History None recorded. Functional [...] MRSA N Blood Transfusion N Emphysema N Hypothyroidism N COPD N Depression N Pacemaker N Vascular Disease N Gastrointestinal Disease N Anxiety Disorder N Autoimmune disease N Arthritis N Cancer N Stroke N High Cholesterol N Neurologic Disorder N Liver Disease N Organ Transplant N Arrhythmia N Rheumatoid Arthritis N Fibromyalgia N Kidney Disease N Allergies/Hayfever N Adverse Reaction to Anesthesia N Thyroid Problems N Anemia N Brain Injury N Heart Attack ([place]) N Osteopenia N Diabetes N Bleeding Disorder [...] Code Diagnosis Note [id number] MD NORA Daniel [address] [address] 06/28/2022 13:35:27 06/28/2022 14:53:39 Pain in right foot [id number] 25232 M79.671 [id number] MICHAEL SALAZAR [address] [address] 07/19/2022 09:08:46 07/19/2022 09:32:50 Pain in right foot [id number] 32928 M79.671 Health Concerns Section Related Observation LastModified by Organization Detai ls LastModified Time None Recorded Concern Status LastModified by Organization Details LastModified Time None Recorded Advance Directives Directive None Recorded Payers Insurance Date Sequence Insurance Name Policy Number Policy Galvez Covered Member ID Galvez Member ID Guarantor Name 07/19/2022 1 [facility] ([facility]) [id number] Laura Hernandez [id number] Laura Hernandez Notes Date Note Type Note [...] Ana Brizuela MD [address], [place], [address], [facility] 07/01/2022 19:51:02 07/19/2022 text/html Laura hahn [...] MEGHAN HOOPER PA-C [address], [place], [address], [facility] 07/19/2022 09:34:17 OBGyn Episode No OBEpisode recorded.
--- NOTE | 2024-10-06 08:58 | MHC.OFFVIS ---
Intake Visit Reasons: s/p Right L3-L4 TFESI/MRI results Allergies Sulfa (Sulfonamide Antibiotics) Allergy (Unknown, Verified 08/20/24 09:32) Unknown HPI HPI s/p Right L3-L4 TFESI/MRI results: Details: History of Present Illness The patient is a 59-year-old female presenting with pain management concerns related to spinal stenosis. The patient has a history of spinal surgery at the L4-5 level, which is currently open and stable. However, there is significant spinal stenosis at the L3-4 level, characterized by ligamentum flavum hypertrophy and disc bulge, leading to a narrowed spinal canal. This condition has resulted in neurogenic claudication symptoms, particularly pain during walking. The patient underwent previous facet injections, which did not alleviate her symptoms, indicating that the facet joints are not the primary source of her pain. The patient remains active, which may have contributed to the progression of her spinal condition over time. Pain Description - Pain is exacerbated by walking, indicative of neurogenic claudication. - Previous facet injections did not relieve pain, suggesting the pain is not primarily facet-related. Physical Exam - Appears afebrile. - Alert and oriented. - Mood and affect appropriate. - Follows and participates in conversation appropriately. Results - MRI shows L3-4 severe spinal stenosis with ligamentum flavum hypertrophy measuring 4 mm on each side. Pain Management - Affect: Pain impacts daily activities, particularly walking. - Analgesia: Previous facet injections were ineffective. - Activities of Daily Living: Pain during walking due to neurogenic claudication. [facility] Medical History (Updated 10/06/24 @ 09:13 by Alonso Terrell MD) Disorder of sacrum Lumbosacral spondylosis without myelopathy Surgical History (Updated 10/18/22 @ 11:53 by Alonso Terrell MD) History of lumbar laminectomy Social History (Updated 10/15/22 @ 09:42 by Brenda Olvera) Alcohol intake: current Alcohol type: beer and wine Patient Tobacco Use Status: Never used Tobacco Telehealth Telehealth Telehealth Platform: [facility] Location of provider rendering services: practice address Location of patient: address on file Patient Identification confirmed using: Name, : Yes Telehealth method: video Patient verbally consented to treatment: Yes Patient verbally consented to billing insurance company: Yes Patient informed of any privacy concerns related to visit: Yes Minutes spent on Phone/Video with Pt.: 18 Assessment & Plan Assessment & Plan (1) Post laminectomy syndrome: Code(s): M96.1 - Postlaminectomy syndrome, not elsewhere classified Category: Medical (2) Spinal stenosis, lumbar region with neurogenic claudication: Code(s): M48.062 - Spinal stenosis, lumbar region with neurogenic claudication Category: Medical Plan Plan - Offered minimally invasive lumbar decompression for spinal stenosis at L3-4; she would like to proceed. - Encouraged patient to maintain core strength through exercises, yoga, and stretching to improve outcomes. - Discussed the possibility of consulting with her surgeon Dr. Juan C Appiah regarding potential extension of spinal fusion, though the patient is not currently interested. Patient was informed and verbally consented to the use of an ambient scribe for clinic note documentation during this visit. Discussion Notes I discussed the MRI findings with the patient, highlighting the severe spinal stenosis at L3-4 with ligamentum flavum hypertrophy. I explained the potential benefits and risks of minimally invasive lumbar decompression and provided information for further consideration. We also discussed the option of consulting with Dr. Juan C Appiah for possible extension of the spinal fusion, although the patient is hesitant about this approach due to potential activity limitations. Patient Instructions - Consider the minimally invasive lumbar decompression procedure and inform us when ready to proceed. - Continue core strengthening exercises, yoga, and stretching to support spinal health. - Follow up with Dr. Juan C Appiah if interested in discussing further surgical options. Coding Level of Care Code Tele Est Pt Level 4 (74706) Diagnoses Post laminectomy syndrome M96.1 Spinal stenosis, lumbar region with neurogenic claudication M48.062
== END 2024-10-05 10:08 | disposition home or self-care (01) ==
LOC: HO.PMC 09:58
PROVIDERS: PCP Nurse Practitioner; Visit Provider Internal Medicine
DX: M96.1 Postlaminectomy syndrome, not elsewhere classified (principal); M48.062 Spinal stenosis, lumbar region with neurogenic claudication
CPT/HCPCS: 99214

== ENCOUNTER 2024-11-05 06:08 | Outpatient (REF) | payer OTHER, SELFPAY ==
--- OUTSIDE RECORDS SUMMARY | 2015-12-20 | XMS_ITS | Encounter Summary ---
Author Organization [facility] Address [address] [place] [address] Phone Care Team Providers Care Lining Maker Hand Name Role Phone Unavailable Primary Care Provider Unavailabl e Reason for Visit * MRI/CAT Scan - Closed Specialty Diagnoses / Procedures Referred By Contac t Referred To Contact Procedures MRI Spine (Neuro) Outside (No Interpretation) Juan C Appiah MD [address] [place] [address] Phone: tel: mailto:[email or web address] Referral ID Status Reason Start Date Expiration Date Visits Re quested Visits Authorized [id number] Closed 03/27/2016 03/27/2017 1 1 Encounter Details Date Type Department Care Team (Late st Contact Info) Description 12/20/2015 Hospital Encounter [facility] [address] [place] [address] Juan C Appiah MD [address] [place] [address] [email or web address] Social History Tobacco Use Types Packs/Day Years [...] AM EDT Office Visit [facility] [address] [place] [address] Juan C Ball, [address] [place] [address] [email or web address] documented as of this encounter Procedures Procedure Name Priority Date/Time Associated Diagnosis Comments MRI SPINE NEUROLOGIC FOCUS OUTSIDE (NO INTERPRETATION) Routine 12/20/2015 12:00 AM EDT documented in this encounter Results * MRI Spine (Neuro) Outside (No Interpretation) (12/20/2015 12:00 AM EDT) Narrative [facility] INTER[facility]ACES - 03/27/2016 3:18 PM EST This study is for PACS storage only and not for interpretation. us Juan C Appiah MD IMG OUTSIDE IMAGING W/OUT INTE RPRETATION Final Result [facility] documented in this encounter Visit Diagnoses Not on filedocumented in this encounter Additional Source Comments The information contained in this document represents components of the legal health record. It is not the complete legal health record.[facility]
--- NOTE | ~2024-11-05 | FL_ITS ---
EXAMINATION: XR FLUOROSCOPY WITH IMAGES CLINICAL INFORMATION: Lumbar spine pain management epidural injection. COMPARISON: 09/29/2024 MR Lumbar TECHNIQUE: Fluoroscopy provided to: Dr. Terrell Fluoroscopy time 8.0 seconds DAP: 0.1801 Gycm2 Images: 3 FINDINGS: 3 fluoroscopic spot images during lumbar spine epidural pain management injection. Please refer to the full operative report for details. FL/FL guidance in treatment room IMPRESSION: Fluoroscopic guidance. Electronically signed by: Sancho Mcgee MD 11/06/2024 08:49 AM EDT
--- OUTSIDE RECORDS SUMMARY | 2024-11-05 06:11 | XMS_ITS | Clinical Summary ---
Author Organization [facility] Address [address] [place] [address] Care Team Providers Care Heating Repair Technician Name Role Phone Darell Zacarias MD Primary Care Provider [phone] Allergies Active Allergy Reactions Criticality Noted Date [...] age to complete this topic Care Teams Heating Repair Technician Relationship Specialty Start Date End Date Darell Zacarias MD [address] [place] [address] PCP - General Family Medicine 05/05/20
== END 2024-11-05 06:09 | disposition home or self-care (01) ==
LOC: CF 06:08
PROVIDERS: Visit Provider Internal Medicine
DX: M48.062 Spinal stenosis, lumbar region with neurogenic claudication (principal); M54.16 Radiculopathy, lumbar region
CPT/HCPCS: 62323; J2003; J3301; Q9967

== ENCOUNTER 2024-11-05 10:29 | Outpatient (AMB) | payer OTHER, SELFPAY ==
--- NOTE | 2024-11-05 10:43 | A.OFFVIS_ITS ---
Vital Signs 11/05/24 10:44 11/05/24 11:08 Height 5 ft 4 in Weight 124 lb BMI 21.3 BP 137/78 128/68 Blood Pressure Location Lt brachial Lt brachial Position Sitting Sitting Respiration 16 16 Pulse 54 54 Pulse Source Pulse Oximeter Pulse Oximeter Pulse Oximetry (%) 100 100 Oxygen Delivery Method Room Air Room Air Intake Visit Reasons: L5-S1 Interlaminar Epidural Steroid Injection Allergies Sulfa (Sulfonamide Antibiotics) Allergy (Unknown, Verified 08/20/24 09:32) Unknown HPI HPI L5-S1 Interlaminar Epidural Steroid Injection: Details: Patient presents for scheduled procedure. Denies any recent cough, cold, infection, fever or other significant changes in medical history since last office visit. [facility] Medical History (Updated 10/06/24 @ 09:13 by Alonso Terrell MD) Disorder of sacrum Lumbosacral spondylosis without myelopathy Surgical History (Updated 10/18/22 @ 11:53 by Alonso Terrell MD) History of lumbar laminectomy Social History (Updated 10/15/22 @ 09:42 by Brenda Olvera) Alcohol intake: current Alcohol type: beer and wine Patient Tobacco Use Status: Never used Tobacco Physical Exam Vital Signs: Last Vital Signs Pulse 54 11/05/24 11:08 Resp 16 11/05/24 11:08 BP 128/68 11/05/24 11:08 Pulse Ox 100 11/05/24 11:08 Oxygen Delivery Method Room Air 11/05/24 11:08 BMI result Body Mass Index 21.3 Office Procedures AMB Joint Injection/Aspiration Joint Injection/Aspiration Details: Interlaminar epidural steroid injection, L5-S1 After obtaining written consent, pre-procedure blood pressure and heart rate were stable and recorded in the nursing record. The patient was placed in the prone position. The lumbar area was widely prepped with chloraprep and draped in sterile fashion. Fluoroscopic guidance was used to identify the desired interlaminar space and for needle placement. Subcutaneous 0.5% lidocaine was used to anesthetize the skin overlying the target. A 20-gauge Grey needle was advanced to the epidural space using loss of resistance to contrast technique under fluoroscopic AP and contralateral oblique views. There was no evidence of heme or CSF and no paresthesias were elicited with needle placement. Confirmation of epidural needle placement was performed with 1cc of omnipaque 180. Next 3 ml 0.5% lidocaine mixed with 80 mg triamcinilone was administered epidurally with no pain elicited on injection. The needle tract tubing was then cleared with 1 ml of 0.5% lidocaine. The needle was removed, sk in cleansed and a sterile bandage was applied. The patient tolerated the procedure well and no complications were encountered. Following the procedure the patient's vital signs were stable. The patient was discharged home in good condition with post-procedural instructions. Time Out: Immediately prior to the procedure, the following was verbally confirmed that there is a signed consent form and that the correct patient, planned procedure, site and side are consistent with documentation and that necessary equipment and/or blood products are available prior to the start of the case. Complications: none EBL: <2 cc Coding 78155 - Caudal/Lumbar Epidural/Interlaminar with fluoroscopy Procedure code (CPT) selection complete Assessment & Plan Assessment & Plan (1) Lumbar radiculopathy: Code(s): M54.16 - Radiculopathy, lumbar region Category: Medical Plan Patient is status post L5-S1 interlaminar JUN. Patient tolerated procedure well and was discharged home in stable condition with discharge instructions. All questions were answered. We will follow-up via telephone or in clinic to assess response to therapy. A follow-up appointment was made during today's visit. Orders: Orders AMB Joint Injection/Aspiration Today Alonso Terrell MD M54.16 - Radiculopathy, lumbar region FL guidance in treatment room Today Michelle Ivey APRN, MALTER OPERATOR M48.062 - Spinal stenosis, lumbar region with neurogenic claudication Coding Level of Care Code Procedure Only Diagnoses Lumbar radiculopathy M54.16 CPT Codes Coding - Joint 11: 41577 - Caudal/Lumbar Epidural/Interlaminar with fluoroscopy ([id number])
[2024-11-05 10:44] VITALS: BP 137/78; PULSE 54; RESP 16; O2SAT 100; BMI 21.3
[2024-11-05 11:08] VITALS: BP 128/68; PULSE 54; RESP 16; O2SAT 100
== END 2024-11-05 11:12 | disposition home or self-care (01) ==
LOC: HO.PMCPRC 10:29
PROVIDERS: PCP Nurse Practitioner; Visit Provider Internal Medicine
DX: M54.16 Radiculopathy, lumbar region (principal)
CPT/HCPCS: 62323

== ENCOUNTER 2024-11-30 09:59 | Outpatient (AMB) | payer OTHER, SELFPAY ==
--- OUTSIDE RECORDS SUMMARY | 2015-12-20 | XMS_ITS | Encounter Summary ---
Author Organization [facility] Address [address] [place] [address] Phone Care Team Providers Care Adult Literacy Teacher Name Role Phone Unavailable Primary Care Provider Unavailabl e Reason for Visit * MRI/CAT Scan - Closed Specialty Diagnoses / Procedures Referred By Contac t Referred To Contact Procedures MRI Spine (Neuro) Outside (No Interpretation) Juan C Appiah MD [address] [place] [address] Phone: tel: mailto:[email or web address] Referral ID Status Reason Start Date Expiration Date Visits Re quested Visits Authorized [id number] Closed 03/27/2016 03/27/2017 1 1 Encounter Details Date Type Department Care Team (Late st Contact Info) Description 12/20/2015 Hospital Encounter [facility] [address] [place] [address] Juan C Appiah MD [address] [place] [address] [email or web address] Social History Tobacco Use Types [...] AM EDT Office Visit [facility] [address] [place] [address] Juan C Ball, [address] [place] [address] [email or web address] documented as of this encounter Procedures Procedure Name Priority Date/Time Associated Diagnosis Comments MRI SPINE NEUROLOGIC FOCUS OUTSIDE (NO INTERPRETATION) Routine 12/20/2015 12:00 AM EDT documented in this encounter Results * MRI Spine (Neuro) Outside (No Interpretation) (12/20/2015 12:00 AM EDT) Narrative [facility] [place] - 03/27/2016 3:18 PM EST This study is for PACS storage only and not for interpretation. us Juan C Appiah MD IMG OUTSIDE IMAGING W/OUT INTE RPRETATION Final Result [facility] [place] [place] [facility] [place] documented in this encounter Visit Diagnoses Not on filedocumented in this encounter Additional Source Comments The information contained in this document represents components of the legal health record. It is not the complete legal health record.[facility]
--- OUTSIDE RECORDS SUMMARY | 2016-02-23 01:00 | XMS_ITS | Encounter Summary ---
Author Organization [facility] Address [address] [place] [address] Phone Care Team Providers Care Glueline Worker Name Role Phone Unavailable Primary Care Provider Unavailabl e Encounter Details Date Type Department Care Team (Late st Contact Info) Description 02/23/2016 Hospital Encounter [facility] [address] [place] [address] Juan C Appiah MD [address] [place] [address] [email or web address] Social History Tobacco Use Types Packs/Day [...] AM EDT Office Visit [facility] [address] [place] [address] Juan C Ball, DO [address] [place] [address] [email or web address] documented as of this encounter Procedures Procedure Name Priority Date/Time Associated Diagnosis Comments XR SPINE OUTSIDE (NO INTERPRETATION) Routine 02/23/2016 12:00 AM EST documented in this encounter Results * XR SPINE OUTSIDE(NO INTERPRETATION) (02/23/2016 12:00 AM EST) Narrative [facility] [place] - 04/10/2016 10:39 AM EST This study is for PACS storage only and not for interpretation. us Juan C Appiah MD IMG OUTSIDE IMAGING W/OUT INTE RPRETATION Final Result [facility] documented in this encounter Visit Diagnoses Not on filedocumented in this encounter Additional Source Comments The information contained in this document represents components of the legal health record. It is not the complete legal health record.[facility]
--- NOTE | 2024-11-30 10:00 | A.OFFVIS_ITS ---
Intake Visit Reasons: S/P L5-S1 Interlaminar JUN Allergies Sulfa (Sulfonamide Antibiotics) Allergy (Unknown, Verified 08/20/24 09:32) Unknown HPI HPI S/P L5-S1 Interlaminar JUN: Details: History of Present Illness The patient is a 59-year-old female presenting with a follow-up visit after an L5-S1 interlaminar epidural steroid injection. She reports significant improvement in her low back discomfort, with no current pain in the central low back area. The patient notes a mild discomfort on the right side, previously injected via TFESI L3-L4, which is currently at a low level and does not require immediate intervention. The patient has a history of lumbar radiculopathy at L3-L4 and L5-S1, with prior interventions including epidural steroid injections. She received an injection at L3-L4 in August, which provided relief on the right side, but subsequently developed central low back pain, leading to the recent L5-S1 injection. The patient is concerned about potential pain recurrence while traveling to [place] and is considering another injection R side before her trip. The patient has received a letter from her insurance company denying coverage for a mild procedure, deemed investigational. She inquires about the possibility of appealing the decision, but it is explained that the procedure is considered an uncovered service. The patient is postmenopausal and has been advised to limit epidural steroid injections to four per year due to safety concerns. She maintains an active lifestyle, engaging in physical therapy exercises, weight training, and stretching. The patient has previously tried acupuncture, which provided temporary relief, and is considering it as an adjunct therapy. Pain Description - Onset: Mild discomfort on the right side, previously injected at L3-L4 TF - Quality: Low-level discomfort, manageable at present - Location: Right side, extending to the hip area - Exacerbating Factors: Concern about potential pain recurrence during travel - Relieving Factors: Previous injections provided significant relief Pain Management - Affect: Pain relief has positively impacted mood and psychological wellbeing - Analgesia: Current pain levels are low; injections have been effective - Adverse Effects: No adverse effects reported from injections - Activities of Daily Living: Pain management allows maintenance of active lifestyle - Aberrant Drug Related Behaviors: No signs of medication misuse or abuse [facility] Medical History (Updated 10/06/24 @ 09:13 by Alonso Terrell MD) Disorder of sacrum Lumbosacral spondylosis without myelopathy Surgical History (Updated 10/18/22 @ 11:53 by Alonso Terrell MD) History of lumbar laminectomy Social History (Updated 10/15/22 @ 09:42 by Brenda Olvera) Alcohol intake: current Alcohol type: beer and wine Patient Tobacco Use Status: Never used Tobacco Telehealth Telehealth Telehealth Platform: [facility] Location of provider rendering services: practice address Location of patient: address on file Patient Identification confirmed using: Name, : Yes Telehealth method: video Patient verbally consented to treatment: Yes Patient verbally consented to billing insurance company: Yes Patient informed of any privacy concerns related to visit: Yes Minutes spent on Phone/Video with Pt.: 13 Assessment & Plan Assessment & Plan (1) Lumbar radiculopathy: Code(s): M54.16 - Radiculopathy, lumbar region Category: Medical Plan Plan Patient was informed and verbally consented to the use of an ambient scribe for clinic note documentation during this visit. 1. Lumbar Radiculopathy At L5-S1 - Continue monitoring the effectiveness of the recent L5-S1 injection. - Consider another injection if symptoms recur before travel. 2. Lumbar Radiculopathy At L3-L4 - Monitor symptoms and potentially repeat L3 TFESI in Nov - Discuss potential extension of spinal fusion if injections become ineffective. 3. Postmenopausal Status - Limit epidural steroid injections to four per year for safety. Discussion Notes During the consultation, we discussed the patient's current pain management strategy, including the effectiveness of recent injections and the potential need for future interventions. We addressed the insurance denial for the mild procedure, explaining it as an investigational service not covered by the insurer. The patient was advised on the safety of limiting epidural steroid injections to four per year and was encouraged to maintain her active lifestyle. Patient Instructions - Monitor symptoms and report any significant changes. - Schedule an injection before traveling if discomfort increases. - Maintain current exercise regimen and consider adjunct therapies like acupuncture. - Contact insurance for further clarification on denied procedures if needed. Coding Level of Care Code Tele Est Pt Level 3 (90635) Diagnoses Lumbar radiculopathy M54.16
--- OUTSIDE RECORDS SUMMARY | 2024-11-30 12:25 | XMS_ITS | Encounter Summary ---
Author Organization [facility] Address [address] [place] [address] Phone Care Team Providers Care Associate Professor Of Psychology Name Role Phone ZacariasDarell melgoza Primary Care Provider Misha Dukes MD Unavailable [phone] Encounter Details Date Type Department Care Team (Late st Contact Info) Description 10/27/2024 Orders Only [facility] NEUROSURGERY VIRTUAL DEPARTMENT [address] [place] [address] Danielle Cormier MD, PhD [address] [place] [phone] [email or web address] Fusion of lumbosacral spine (Primary Dx) Social History Tobacco Use Types Packs/Day Years [...] on file documented as of this encounter Functional Status * Patient is deaf or has serious difficulty with hearing Answer Date of Assessment Author No 06/25/2016 3:03 PM EDT Nithya Alarcon PA * Patient is blind or has serious difficulty with seeing, even when wearing glasses Answer Date of Assessment Author No 06/25/2016 3:03 PM EDT Nithya Alarcon PA * Patient has serious difficulty walking or climbing stairs (5yr old or older) Answer Date of Assessment Author No 06/25/2016 3:03 PM EDT Nithya Alarcon PA * Patient has serious difficulty dressing or bathing (5yr old or older) Answer Date of Assessment Author No 06/25/2016 3:03 PM EDT Nithya Alarcon PA * Patient has serious difficulty doing errands alone such as visiting a doctor???s office or shopping, due to physical, mental, or emotional condition (15 years old or older) Answer Date of Assessment Author No 06/25/2016 3:03 PM EDT Nithya Alarcon PA documented as of this encounter Mental Status * Patient has serious difficulty concentrating, remembering, or making decisions due to physical, mental, or emotional condition Answer Entry Date Author No 06/25/2016 3:03 PM JANAT Nithya Alarcon PA documented in this encounter Plan of Treatment Upcoming Encounters Date Type Department Care Team (Late st Contact Info) Description 01/11/2025 10:10 AM EDT Office Visit [facility] [address] [place] [address] Juan C Ball DO [address] [place] [address] [email or web address] Scheduled Orders Name Type Priority Associated Diagnoses Orde r Schedule XR Lumbar Spine Imaging Routine Fusion of lumbosacral spine Expected: 10/28/2024, Expires: 01/27/2025 documented as of this encounter Visit Diagnoses Diagnosis Fusion of lumbosacral spine- Primary documented in this encounter Care Teams Associate Professor Of Psychology Relationship Specialty Start Date End Date Darell Zacarias DO [address] [facility] [place] [address] PCP - General Family Medicine 03/16/16 Misha Dukes MD [address] [place] [address], [address] [place] [address] [email or web address] Historical LMR Provider 01/03/17 documented as of this encounter Additional Source Comments The information contained in this document represents components of the legal health record. It is not the complete legal health record.[facility]
--- OUTSIDE RECORDS SUMMARY | 2024-11-30 12:25 | XMS_ITS | Encounter Summary ---
Author Organization [facility] Address [address] [place] [address] Phone Care Team Providers Care Side Stitcher Name Role Phone Darell Zacarias DO Primary Care Provider Darell Zacarias DO Unavailable [phone] Misha Dukes MD Unavailable [phone] Allie Gaffney MD Unavailable [phone] Encounter Details Date Type Department Care Team (Late st Contact Info) Description 12/08/2019 Procedure Pass [facility], [address] [address] Social History Tobacco Use Types Packs/Day Years Used Date Smoking Tobacco: Never Smokeless Tobacco: Never Alcohol Use Standard Drinks/Week Comments Yes 0 (1 standard drink = 0.6 oz pur e alcohol) Comments Unknown Sex and Gender Information Value Date Recorded Sex Assigned at Not on file Legal Sex Female 8:33 AM EST Gender Identity Not on file Sexual Orientation Not on file documented as of this encounter Functional Status * Patient is deaf or has serious difficulty with hearing Answer Date of Assessment Author No 06/25/2016 3:03 PM Nithya Brewster PA * Patient is blind or has serious difficulty with seeing, even when wearing glasses Answer Date of Assessment Author No 06/25/2016 3:03 PM Nithya Brewster PA * Patient has serious difficulty walking [...] Entry Date Author No 06/25/2016 3:03 PM EDT Nithya Alarcon PA documented in this encounter Plan of Treatment Upcoming Encounters Date Type Department Care Team (Late st Contact Info) Description 01/11/2025 10:10 AM EDT Office Visit [facility] [address] [place] [address] Juan C Ball DO [address] [place] [address] [email or web address] documented as of this encounter Visit Diagnoses Not on filedocumented in this encounter Care Teams Side Stitcher Relationship Specialty Start Date End Date Darell Zacarias DO [address] [place] [address] PCP - General Family Medicine 03/16/16 Darell Zacarias DO [address] [facility] [place] [address] Historical LMR Provider 01/03/17 2 Misha uDkes MD [address] [place] [address], [address] [place] [address] Historical LMR Provider 01/03/17 Allie Gaffney MD [address] [place] [address] Orthopedics & Sports Medicine, [facility] [place] [address] [email or web address] Historical LMR Provider 01/03/17 documented as of this encounter Additional Source Comments The information contained in this document represents components of the legal health record. It is not the complete legal health record.[facility]
--- OUTSIDE RECORDS SUMMARY | 2024-11-30 12:25 | XMS_ITS | Clinical Summary ---
Author Organization [facility] Address [address] [place] [address] Phone Care Team Providers Care Cable Swager Name Role Phone Darell Zacarias DO Primary Care Provider Misha Dukes MD Unavailable [phone] Allergies Active Allergy Reactions Criticality Noted Date Comments Sulfa (Sulfonamide Antibiotics) Unknown 05/2016 Medications therapeutic multivitamin tablet Take 1 tablet by mouth daily. Active b complex vitamins capsule Take 1 capsule by mouth daily. Active ascorbic acid, vitamin C, (VITAMIN C) 500 mg Chew Take by mouth 2 (two) times a day. Active acetaminophen (TYLENOL) 325 mg tablet Take 2 tablets (650 mg total) by mouth every 6 (six) hours. 0 7 Active NAPROXEN SODIUM (ALEVE ORAL) Active ibuprofen (ADVIL,MOTRIN) 200 MG tablet Take 400 mg by mouth every 6 (six) hours as needed for pain (specific location in comments). Active fluticasone propionate (FLONASE) 50 mcg/actuation nasal spray 1 spray by Nasal route daily as needed. Active bacillus coagulans-inulin 1 billion-250 cell-mg Cap Take by mouth daily. Active Medication-Free Text Apply topically. CBD/CBG balm Active Active Problems Problem Noted Date Diagnosed Date Spondylolisthesis of lumbar region 06/25/2016 Resolved Problems Problem Noted Date Diagnosed Date Resolved Date Degenerative spondylolisthesis 06/25/2016 06/25/2016 Encounters Date Type Department Care Team Description 11/13/2024 Telephone [facility] [address], [address], [address] [place] [address] Danielle Cormier MD, PhD 11/13/2024 Telephone [facility] [address], [address], [address] [place] [address] Danielle Cormier MD, PhD 11/04/2024 Telephone [facility] [address], [address], [address] [place] [address] Danielle Cormier MD, PhD 10/28/2024 Telephone [facility] [address], [address], [address] [place] [address] Danielle Cormier MD, PhD 10/27/2024 Orders Only [facility]MENT [address] [place] [phone] Danielle Cormier MD, PhD Fusion of lumbosacral spine (Primary Dx) 10/27/2024 Ancillary Orders [facility] [address] [place] [phone] Unknown, Unknown, 10/16/2024 Telephone [facility] [address], [address], [address] [place] [phone] Brittney Castano RN 10/13/2024 Telephone [facility] [address], [address], [address] [place] [address] Brittney Castano, CHRISTINE 10/08/2024 Telephone [facility] [address], [address], [address] [place] [address] Brittney Castano, CHRISTINE 09/29/2024 - 09/29/2024 11:59 PM EDT Hospital Encounter [facility] [address] [place] [phone] Unknown, Unknown, MD Discharge Disposition: Home or Self Care from Last 3 Months Family History Medical History Relation Comments CV disease Father 2 Relation Status Comments Father 1 Alive Father 2 Social History Tobacco Use Types Packs/Day Years Used Date Smoking Tobacco: Never Smokeless Tobacco: Never Alcohol Use Standard Drinks/Week Comments Yes 0 (1 standard drink = 0.6 oz pur e alcohol) Education Answer Date Recorded Are you interested in more education? Not on tonay e 07/12/2022 Are you concerned about learning? [...] on file Sexual Orientation Not on file Last Filed Vital Signs Vital Sign Reading Time Taken Comments Blood Pressure 118/66 04/28/2019 2:09 PM EST Pulse 54 04/28/2019 2:09 PM EST Temperature 37.3 C (99.2 F) 06/27/2016 7:20 AM EDT Respiratory Rate 18 06/27/2016 7:20 AM EDT Oxygen Saturation 96% 04/28/2019 2:09 PM EST Inhaled Oxygen Concentration - - Weight 61.7 kg (136 lb) 01/05/2020 4:47 PM EDT Height 162.6 cm (5' 4 ) 01/05/2020 4:47 PM EDT Body Mass Index 23.34 01/05/2020 4:47 PM EDT Plan of Treatment Upcoming Encounters Date Type Department Care Team (Late st Contact Info) Description 01/11/2025 10:10 AM EDT Office Visit [facility] [address] [place] [address] [place] [address] Juan C Ball DO [address] [place] [address] Health Maintenance Due Date Last Done Comments Adult Td,Tdap Booster 1963 LIPID PANEL 1963 DEPRESSION SCREENING 1975 HEPATITIS C SCREENING 1981 HIV ONE-TIME SCREENING (18-6 5 YEARS) 1981 PAP SMEAR 1984 MAMMOGRAM 2003 COLOGUARD 2008 COLONOSCOPY 2008 COLORECTAL CANCER SCREENING 2008 FIT TEST 2008 FOBT 2008 SIGMOIDOSCOPY 2008 VIRTUAL COLONOSCOPY 2008 PNEUMOCOCCAL VACCINES (50+ y ears) (1 of 1 - PCV) 2013 ZOSTER VACCINES (1 of 2) 2013 INFLUENZA VACCINE (#1) 2024 12/20/2022 COVID-19 VACCINE (2 - 2024-2 6 season) 2024 12/20/2022 RSV VACCINE (1 - 1-dose 75+ series) 2038 SMOKING STATUS SCREENING (On ce After 26 Yrs) Completed 09/29/2021 HEPATITIS A VACCINES Aged Out No long er eligible based on patient's age to complete this topic HIB VACCINES Aged Out No longer eligi ble based on patient's age to complete this topic MENINGOCOCCAL VACCINES (ACWY) Aged Out No longer eligible based on patient's age to complete this topic MENINGOCOCCAL VACCINES (B) Aged Out N o longer eligible based on patient's age to complete this topic Medical Devices Implanted Type Area Medical Scribe Device Identifier Shelf Expiration Date Model / Serial / Lot Putty Bone Graft Sheryl Demineralized Matrix Jar 5.0ml - [id number] Implanted:Qty: 1 on 06/25/2016 by Juan C Appiah MD at [facility] [employer] 01/17/2019 [id number] / / Screw Polyaxial Open Ti Pk/1ea - [id number] Implanted:Qty: 2 on 06/25/2016 by Juan C Appiah MD at [facility] [employer] [id number] / / Screw Reline Lock 5.5mm Open Tulip - [id number] Implanted:Qty: 4 on 06/25/2016 by Juan C pApiah MD at [facility] [employer] [id number] / / Saud Reline-O Ti 5.5x40mm [employer] - [id number] Implanted:Qty: 2 on 06/25/2016 by Juan C Appiah MD at [facility] [employer] [id number] / / Shidi Needle Ref# [id number] Implanted:Qty: 1 on 06/25/2016 by Juan C Appiah MD at [facility] 04/17/[id number] / / [id number] Description:not an implant. disposable needle Procedures Procedure Name Priority Date/Time Associated Diagnosis Comments MRI SPINE NEUROLOGIC FOCUS OUTSIDE (NO INTERPRETATION) Routine 09/29/2024 12:00 AM EDT from Last 3 Months Results * MRI Spine (Neuro) Outside (No Interpretation) (09/29/2024 12:00 AM EDT) Narrative [facility] - 10/27/2024 8:07 AM EDT This study is for PACS storage only and not for interpretation. us Unknown Unknown IMG OUTSIDE IMAGING W/OUT INT ERPRETATION Final Result [facility] IM INTERFACES from Last 3 Months Insurance Remotium TOTAL CHOICE INDEMNITY Rem[employer] TOTAL CHOICE INDEMNITY [employer] [facility] TOTAL CHOICE INDEMNITY [employer] [facility] TOTAL CHOICE [facility]DEMNITY [employer] [facility] TOTAL CHOICE INDEMNITY [employer] [facility] TOTAL CHOICE INDEMNITY [employer] [facility] TOTAL CHOICE INDEMNITY [employer] [facility] TOTAL CHOICE INDEMNITY [facility] TOTAL CHOICE INDEMNITY [employer] Advance Directives For more information, please contact: [phone] (9AM - 5PM Heather/[facility], Saturday-Saturday) * Full Code (Presumed) (Latest Code Status on File) Date Activated Date Inactivated Comments 06/25/2016 7:24 PM 06/27/2016 3:14 PM Care Teams Cable Swager Relationship Specialty Start Date End Date Darell Zacarias DO [address] [place] [address] [place] [address] PCP - General Family Medicine 03/16/16 Misha Dukes MD [address] [place] [address], [address] [place] [phone] [email or web address] Historical LMR Provider 01/03/17 Additional Source Comments The information contained in this document represents components of the legal health record. It is not the complete legal health record.[facility]
--- OUTSIDE RECORDS SUMMARY | 2024-11-30 12:25 | XMS_ITS | Encounter Summary ---
Author Organization [facility] Address [address] [place] [address] Phone Care Team Providers Care Middle School History Teacher Name Role Phone Darell Zacarias DO Primary Care Provider Darell Zacarias DO Unavailable [phone] Misha Dukes MD Unavailable [phone] Allie Gaffney MD Unavailable [phone] Encounter Details Date Type Department Care Team (Late st Contact Info) Description 03/27/2016 Procedure Pass [facility] Imaging [address] [place] [address] Social History Tobacco Use Types Packs/Day Years [...] AM EDT Office Visit [facility] [address] [place] [address] Juan C Ball DO [address] [place] [address] documented as of this encounter Visit Diagnoses Not on filedocumented in this encounter Care Teams Middle School History Teacher Relationship Specialty Start Date End Date Darell Zacarias DO [address] [facility] [place] [address] PCP - General Family Medicine 03/16/16 Darell Zacarias DO [address] [facility] [place] [address] Historical LMR Provider 01/03/17 2 Misha Dukes MD [address] [facility], 2nd [place] [address] Historical LMR Provider 01/03/17 Allie Gaffney MD [address] [place] [address] Orthopedics & Sports Medicine, [facility] [place] [address] Historical LMR Provider 01/03/17 documented as of this encounter Additional Source Comments The information contained in this document represents components of the legal health record. It is not the complete legal health record.[facility]
--- OUTSIDE RECORDS SUMMARY | 2024-11-30 12:25 | XMS_ITS | Encounter Summary ---
Author Organization [facility] Address [address] [place] [address] Phone Care Team Providers Care Dispatch Supervisor Name Role Phone Darell Zacarias DO Primary Care Provider Darell Zacarias DO Unavailable Misha Dukes MD Unavailable [phone] Allie Gaffney MD Unavailable [phone] Encounter Details Date Type Department Care Team (Late st Contact Info) Description 06/25/2016 Procedure Pass [facility] [address] [place] [address] Social History Tobacco Use Types Packs/Day Years [...] Brewster PA * Patient has serious difficulty dressing [...] AM EDT Office Visit [facility] [address] [place] [address] Juan C Ball DO [address] [place] [address] documented as of this encounter Visit Diagnoses Not on filedocumented in this encounter Care Teams Dispatch Supervisor Relationship Specialty Start Date End Date Darell Zacarias DO 24 No [facility] [place] [address] PCP - General Family Medicine 03/16/16 Darell Zacarias DO 24 No [facility] [place] [address] Historical LMR Provider 01/03/17 2 Misha Dukes MD [address] [place] [address], [address] [place] [address] Historical LMR Provider 01/03/17 Allie Gaffney MD [address] [place] [address] Orthopedics & Sports Medicine, [facility] [place] [address] [email or web address] Historical LMR Provider 01/03/17 documented as of this encounter Additional Source Comments The information contained in this document represents components of the legal health record. It is not the complete legal health record.[facility]
--- OUTSIDE RECORDS SUMMARY | 2024-11-30 12:25 | XMS_ITS | Clinical Summary ---
Author Organization [facility] Address [address] [place] [address] Care Team Providers Care Peripatologist Name Role Phone Darell Zacarias MD Primary Care Provider Allergies Active Allergy Reactions Criticality Noted Date [...] age to complete this topic Care Teams Peripatologist Relationship Specialty Start Date End Date Darell Zacarias MD [address] [place] [address] PCP - General Family Medicine 05/05/20
== END 2024-11-30 10:00 | disposition home or self-care (01) ==
LOC: HO.PMC 09:59
PROVIDERS: PCP Nurse Practitioner; Visit Provider Internal Medicine
DX: M54.16 Radiculopathy, lumbar region (principal)
CPT/HCPCS: 99213

== ENCOUNTER 2025-02-04 06:15 | Outpatient (REF) | payer OTHER, SELFPAY ==
--- OUTSIDE RECORDS SUMMARY | 2015-12-19 23:00 | XMS_ITS | Encounter Summary ---
Author Organization [facility] Address [address] [place] [address] Phone Care Team Providers Care Machine Printer Name Role Phone Unavailable Primary Care Provider Unavailabl e Reason for Visit * MRI/CAT Scan - Closed Specialty Diagnoses / Procedures Referred By Contac t Referred To Contact Procedures MRI Spine (Neuro) Outside (No Interpretation) Juan C Appiah MD [facility] [place] [address] Phone: tel: mailto:[email or web address] Referral ID Status Reason Start Date Expiration Date Visits Re quested Visits Authorized [id number] Closed 03/27/2016 03/27/2017 1 1 Encounter Details Date Type Department Care Team (Late st Contact Info) Description 12/20/2015 Hospital Encounter [facility] [address] [place] [address] Juan C Appiah MD [address] [place] [address] [email or web address] [email or web address] Social History Tobacco Use Types Packs/Day Years Used Date Smoking Tobacco: Never Smokeless Tobacco: Never Alcohol Use Standard Drinks/Week Comments Yes 0 (1 standard drink = 0.6 oz pur e alcohol) Education Answer Date Recorded Are you interested in more education? Not on tonya e 07/12/2022 Are you concerned about learning? Not on file 07/12/2022 No 07/12/2022 No 07/12/2022 Digital Access Answer Date Recorded No 08/09/2022 No 08/09/2022 Reliable internet access at home? Not on file 08/09/2022 Device with a working camera? Not on file Comments Unknown Sex and Gender Information Value Date Recorded Sex Assigned at Not on file Legal Sex Female 8:33 AM EST Gender Identity Not on file Sexual Orientation Not on file documented as of this encounter Plan of Treatment Upcoming Encounters Date Type Department Care Team (Late st Contact Info) Description 07/19/2025 10:10 AM EDT Office Visit [facility] [address] [place] [address] Juan C Ball, DO [address] [place] [address] [email or web address] documented as of this encounter Procedures Procedure Name Priority Date/Time Associated Diagnosis Comments MRI SPINE NEUROLOGIC FOCUS OUTSIDE (NO INTERPRETATION) Routine 12/20/2015 12:00 AM EDT documented in this encounter Results * MRI Spine (Neuro) Outside (No Interpretation) (12/20/2015 12:00 AM EDT) Narrative [facility] [place] - 03/27/2016 3:18 PM EST This study is for PACS storage only and not for interpretation. us Juan C Appiah MD IMG OUTSIDE IMAGING W/OUT INTE RPRETATION Final Result [facility] [place] [place] [facility] [place] documented in this encounter Visit Diagnoses Not on filedocumented in this encounter Additional Source Comments The information contained in this document represents components of the legal health record. It is not the complete legal health record.[facility]
--- OUTSIDE RECORDS SUMMARY | 2016-02-23 | XMS_ITS | Encounter Summary ---
Author Organization [facility] Address [address] [place] [address] Phone Care Team Providers Care High Density Talc Coater Operator Name Role Phone Unavailable Primary Care Provider Unavailabl e Encounter Details Date Type Department Care Team (Late Contact Info) Description 02/23/2016 Hospital Encounter [facility] [address] [place] [address] Juan C Appiah MD [address] [place] [address] [email or web address] Social History Tobacco Use Types Packs/Day [...] Encounters Date Type Department Care Team (Late Contact Info) Description 07/19/2025 10:10 AM EDT Office Visit [facility] [address] [place] [address] Juan C Ball DO [address] [place] [address] [email or web address] documented as of this encounter Procedures Procedure Name Priority Date/Time Associated Diagnosis Comments XR SPINE OUTSIDE (NO INTERPRETATION) Routine 02/23/2016 12:00 AM EST documented in this encounter Results * XR SPINE OUTSIDE(NO INTERPRETATION) (02/23/2016 12:00 AM EST) Narrative [facility] [place] [facility] [place] - 04/10/2016 10:39 AM EST This study is for PACS storage only and not for interpretation. us Juan C Appiah MD IMG OUTSIDE IMAGING W/OUT INTE RPRETATION Final Result [facility] [place] documented in this encounter Visit Diagnoses Not on filedocumented in this encounter Additional Source Comments The information contained in this document represents components of the legal health record. It is not the complete legal health record.[facility]
--- NOTE | ~2025-02-04 | FL_ITS ---
EXAMINATION: FL GUIDANCE ONLY HISTORY: M54.16 - Radiculopathy, lumbar region COMPARISON: Correlation is made with an MRI of the lumbar spine and 09/29/2024. TECHNIQUE: Fluoroscopy time: 14 seconds. Cumulative Dose: 2.90 mGy. DAP: 168.80 mGycm2 Images: 4. FINDINGS: Fluoroscopic spot films of the lumbar spine demonstrate a needle and contrast material in the region of the right L3-4 facet joints. FL/FL guidance in treatment room IMPRESSION: Fluoroscopy during procedure. Please see procedure report for additional information. Electronically signed by: Rell Patricio MD 02/04/2025 03:03 PM [place]
--- OUTSIDE RECORDS SUMMARY | 2025-02-04 06:17 | XMS_ITS | Clinical Summary ---
Author Organization [facility] Address [address] [place] [address] Care Team Providers Care Shear Grinder Operator Name Role Phone Darell Zacarias MD Primary Care Provider [phone] Allergies Active Allergy Reactions Criticality Noted Date [...] age to complete this topic Care Teams Shear Grinder Operator Relationship Specialty Start Date End Date Darell Zacarias MD [address] [place] [address] PCP - General Family Medicine 05/05/20
--- OUTSIDE RECORDS SUMMARY | 2025-02-04 06:18 | XMS_ITS | Data Portability ---
Author Organization [facility] Lizette [facility]ao [facility] Address [address] [place] [address] Care Team Providers Care Radiology Therapist Name Role Phone MAEVE QUINTANILLA Primary Care Provider [phone] MAEVE QUINTANILLA Referring Provider [phone] Assessment Encounter Date Assessment Date Assessment LastModified [...] and we can reevaluate. Ice, elevation and xrda-dwg-porqich analgesics as needed. [email or web address] Not available 07/19/2022 09:33:53 Plan of Treatment Reminders Order Date Submit Date Provider Last Modified By Organization Details Last Modified Time Details Appointments None record ed. Lab None record ed. Referral None record ed. Procedures None record ed. Surgeries None record ed. Imaging XR, foot, 3 or more view 023 06/29/19 23 [email or web address] [facility], [address], [place], [address], 16:22:08 Medication Orders None record ed. Patient [...] Recorded Time back fusion completed Marshall Osborn [facility], [facility] 06/28/2022 14:04:08 Imaging Results None [...] Not available Not available Not available 06/28/2022 [id number] SNOMED Marshall vargas [facility] 14:03:06 Medications Name Sig Start [...] Address Organization Details Last Updated DateTime 06/28/2022 [address]108.38 g 23.7 kg/m2 160.02 cm Marshall Osborn [facility] 06/28/2022 14:03:23 Date Recorded Body height Body mass index (BMI) Body weight Provider Name and Address Organization Details Last Updated DateTime 07/19/2022 160.02 cm 23.7 kg/m2 64111.[address] [facility], 07/19/2022 09:13:20 Social History None recorded. Functional [...] Blood Transfusion N Emphysema N Hypothyroidism N Depression N COPD N Pacemaker N Vascular Disease N Gastrointestinal Disease N Anxiety Disorder N Autoimmune disease N Arthritis N Cancer N Stroke N High Cholesterol N Neurologic Disorder N Liver Disease N Organ Transplant N Rheumatoid Arthritis N Arrhythmia N Fibromyalgia N Kidney Disease N Allergies/Hayfever N Adverse Reaction to Anesthesia N Thyroid Problems N Anemia N Brain Injury N Heart Attack (NH) N Osteopenia N Diabetes N Bleeding Disorder [...] Diagnosis SNOMED-CT Code Diagnosis ICD10 Code Diagnosis IMO Codes Diagnosis Note [id number] MD NORA Daniel [address] [address] 06/28/2022 13:35:27 06/28/2022 14:53:39 Pain in right foot [id number] 16096 M79.671 8267 MICHAEL SALAZAR [address] [address] 07/19/2022 09:08:46 07/19/2022 09:32:50 Pain in right foot [id number] 09467 M79.671 Health Concerns Section Related Observation LastModified by Organization Detai ls LastModified Time None Recorded Concern Status LastModified by Organization Details LastModified Time None Recorded Advance Directives Directive None Recorded Payers Insurance Date Sequence Insurance Name Policy Number Policy Galvez Covered Member ID Galvez Member ID Guarantor Name 07/19/2022 1 [facility] [id number] Laura Hernandez [id number] Laura Hernandez Notes Date Note Type Note Provider Name and Address Organization Details Recorded Time 06/28/2022 text/html Laura Hernandez is a 57-year-old female who presents today [...] Ana Brizuela MD [address], [place], [address], [facility] 07/01/2022 19:51:02 07/19/2022 text/html Laura Hernandez is a 57-year-old female returns to the [...] MEGHAN [place] PA-C [address], [place], [address], [place] [facility] 07/19/2022 09:34:17 OBGyn Episode No OBEpisode recorded.
--- OUTSIDE RECORDS SUMMARY | 2025-02-04 06:18 | XMS_ITS | Encounter Summary ---
Author Organization [facility] Address [address] [place] [address] Phone Care Team Providers Care Group Burner Machine Name Role Phone Darell Zacarias DO Primary Care Provider Darell Zacarias DO Unavailable [phone] Misha Dukes MD Unavailable [phone] Allie Gaffney MD Unavailable [phone] Encounter Details Date Type Department Care Team (Late st Contact Info) Description 03/27/2016 Procedure Pass [facility] [address] [place] [address] Social History Tobacco Use Types Packs/Day Years [...] AM EDT Office Visit [facility] [address] [place] [address] Juan C Ball DO 22 [place] [address] documented as of this encounter Visit Diagnoses Not on filedocumented in this encounter Care Teams Group Burner Machine Relationship Specialty Start Date End Date Darell Zacarias DO 24 No [facility] [place] [address] PCP - General Family Medicine 03/16/16 Darell Zacarias DO 24 [address] [facility] [place] [address] Historical LMR Provider 01/03/17 2 Misha Dukes MD [address] [facility], 2nd [place] [address] Historical LMR Provider 01/03/17 Allie Gaffney MD [address] [place] [address] Orthopedics & Sports Medicine, [facility] [place] [address] Historical LMR Provider 01/03/17 documented as of this encounter Additional Source Comments The information contained in this document represents components of the legal health record. It is not the complete legal health record.[facility]
--- OUTSIDE RECORDS SUMMARY | 2025-02-04 06:18 | XMS_ITS | Clinical Summary ---
Author Organization [facility] Address [address] [facility] [address] [address] [place] [address] Phone Care Team Providers Care Seat Trimmer Name Role Phone Darell Zacarias DO Primary Care Provider Misha Dukes MD Unavailable [phone] Allergies Active Allergy Reactions Criticality Noted Date Comments Sulfa (Sulfonamide Antibiotics) Unknown 05/2016 Medications therapeutic multivitamin tablet Take 1 tablet by mouth daily. Active acetaminophen (TYLENOL) 325 mg tablet Take 2 tablets (650 mg total) by mouth every 6 (six) hours. 0 017 Active NAPROXEN SODIUM (ALEVE ORAL) Active ibuprofen (ADVIL,MOTRIN) 200 MG tablet Take 400 mg by mouth every 6 (six) hours as needed for pain (specific location in comments). Active fluticasone propionate (FLONASE) 50 mcg/actuation nasal spray 1 spray by Nasal route daily as needed. Active bacillus coagulans-inuli n 1 billion-250 cell-mg Cap Take by mouth daily. Active diclofenac sodium (VOLTAREN) 1 % Gel Apply topically as needed. 024 Active b complex vitamins capsule Take 1 capsule by mouth daily. 2024 Discontinued ascorbic acid, vitamin C, (VITAMIN C) 500 mg Chew Take by mouth 2 (two) times a day. 2024 Discontinued Medication-Free Text Apply topically. CBD/CBG balm 2024 Discontinued dexAMETHasone (DECADRON) 1 MG tabletIndicatio ns:Adrenal nodule Take 1 tablet (1 mg total) by mouth once for 1 dose. Please take dexamethasone at 11 PM at night and then do lab work the following morning. You must be fasting. Try to do the lab work as soon as you wake up. 1 tablet 025 2024 Active Problems Problem Noted Date Diagnosed Date Adrenal nodule 01/11/2025 Assessment & Plan (01/11/2025 11:07 AM EDT): The patient has a left adrenal nodule that measures 2 cm and is likely an adrenal adenoma. She informs me that she has seen endocrinology before and this was worked up. Unfortunately she cannot recall what the workup entailed. She does not want to do any repeat imaging due to concern over too much radiation exposure. So what I will do instead is do the biochemical workup which is just blood test. I have requested prior records and CT imaging. If this has already been diagnosed as an adrenal adenoma based on CT imaging then I will not request this study again. In the meantime I have asked her to do lab work fasting first thing in the morning and to return for follow-up in 3 to 4 months time. Spondylolisthesis of lumbar region 06/25/2016 Resolved Problems Problem Noted Date Diagnosed Date Resolved Date Degenerative spondylolisthesis 06/25/2016 06/25/2016 Encounters Date Type Department Care Team Description 01/21/2025 Orders Only [facility] [address] [place] [address] Provider, MD Ruchi 01/11/2025 10:10 AM EDT Office Visit [facility] [address] [place] [address] Juan C Ball DO Adrenal nodule (Primary Dx) 11/13/2024 Telephone [facility] [address] [place] [address], 7th Floor, [address] [place] [address] Danielle Cormier MD, PhD 11/13/2024 Telephone [facility] [address] [place] [address], 7th Floor, [address] [place] [address] Danielle Cormier MD, PhD 11/04/2024 Telephone [facility] [address] [place] [address], 7th Floor, [address] [place] [address] Danielle Cormier MD, PhD from Last 3 Months Family History Medical History Relation Comments CV disease Father Hyperlipidemia Mother Relation Status Comments Father Alive Mother Alive Social History Tobacco Use Types Packs/Day Years [...] Sign Reading Time Taken Comments Blood Pressure 124/72 01/11/2025 10:20 AM EDT Pulse 55 01/11/2025 10:20 AM EDT Temperature 37.3 C (99.2 F) 06/27/2016 7:20 AM EDT Respiratory Rate 18 06/27/2016 7:20 AM EDT Oxygen Saturation 99% 01/11/2025 10:20 AM EDT Inhaled Oxygen Concentration - - Weight 58.5 kg (129 lb) 01/11/2025 10:20 AM EDT Height 159.3 cm (5' 2.72 ) 01/11/2025 10:20 AM E DT Body Mass Index 23.06 01/11/2025 10:20 AM EDT Plan of Treatment Upcoming Encounters Date Type Department Care Team (Late st Contact Info) Description 07/19/2025 10:10 AM EDT Office Visit [facility] [address] [place] [address] Juan C Ball DO [address] [place] [address] Health Maintenance Due Date Last Done Comments [...] SCREENING (On ce After 26 Yrs) Completed 01/11/2025 HEPATITIS A VACCINES Aged Out No long er eligible based on patient's age to complete this topic HIB VACCINES Aged Out No longer eligi ble based on patient's age to complete this topic IPV VACCINES Aged Out No longer eligi ble based on patient's age to complete this topic MENINGOCOCCAL VACCINES (ACWY) Aged Out No longer eligible based on patient's age to complete this topic MENINGOCOCCAL VACCINES (B) Aged Out N o longer eligible based on patient's age to complete this topic Medical Devices Implanted Type Area Dam Tender Device Identifier Shelf Expiration Date Model / Serial / Lot Putty Bone Graft [place] Demin[employer]ized Matrix Jar 5.0ml - [id number] Implanted:Qty: 1 on 06/25/2016 by Juan C Appiah MD at [facility] [employer] 01/17/2019 [id number] / / Screw Polyaxial Open Ti Pk/1ea - [id number] Implanted:Qty: 2 on 06/25/2016 by Juan C Appiah MD at [facility] [employer] [id number] / / Screw Reline Lock 5.5mm Open [place] - [id number] Implanted:Qty: 4 on 06/25/2016 by Juan C Appiah MD at [facility] [employer] [id number] / / Saud Reline-O Ti 5.5x40mm [employer] - [id number] Implanted:Qty: 2 on 06/25/2016 by Juan C Appiah MD at [facility] [employer] [id number] / / Shidi Needle Ref# [id number] Implanted:Qty: 1 on 06/25/2016 by Juan C Appiah MD at [facility] 04/17/2017 [id number] / / [id number] Description:not an implant. disposable needle Procedures Procedure Name Priority Date/Time Associated Diagnosis Comments DEXAMETHASONE LEVEL Routine 01/21/2025 7 :50 AM EST Adrenal nodule CORTISOL Routine 01/21/2025 7:50 AM EST Adrenal nodule ALDOSTERONE Routine 01/21/2025 7:50 AM EST Adrenal nodule RENIN ACTIVITY Routine 01/21/2025 7:50 AM EST Adrenal nodule from Last 3 Months Results * Aldosterone (01/21/2025 7:50 AM EST) Aldosterone, S 5.7 <=21 ng/dL 01/24/2025 3:23 PM EST [facility] Comment: ADDITIONAL INFORMATION Reference range for patients 11 years and older is based on upright A.M. collection from subjects without sodium restrictions. This test was developed and its performance characteristics determined by [facility] in a manner consistent with CLIA requirements. This test has not been cleared or approved by the U.S. Food and Drug Administration. Blood 01/21/2025 7:50 AM EST 01/21/2025 7:55 AM EST Juan C Ball DO LAB BLOOD BKR ORDERABLES Final R esult AVALOS SAVANNAH) [facility] [address] [place], [place] [address] [phone] * Dexamethasone Level (01/21/2025 7:50 AM EST) Pathologist [facility] Dexamethasone 156 ng/dL 01/29/2025 9:42 AM EST [employer] [place] Comment: . Reference Ranges for Dexamethasone: . Baseline: Less than 20 ng/dL 1 mg dexamethasone overnight: 180-550 ng/dL (8:00-10:00 AM) . This test was developed and its analytical performance characteristics have been determined by [employer]. It has not been cleared or approved by the FDA. This assay has been validated pursuant to the CLIA regulations and is used for clinical purposes. Blood 01/21/2025 7:50 AM EST 01/21/2025 7:55 AM EST Narrative CORNEL (BANDAR) - 01/29/2025 9:42 AM EST [facility] Received Date and Time: [id number] Juan C Ball LAB BLOOD BKR ORDERABLES Final R esult CORNEL NUÑEZ) [employer] [facility] [address] * Renin Activity (01/21/2025 7:50 AM EST) [facility] Renin Activity, P <0.6 ng/mL/h 025 1:17 PM EST [facility] [employer] Comment: REFERENCE VALUE (Peripheral vein specimen) Na-deplete, upright: Mean: 5.9 Range: 2.9-10.8 Na-replete, upright: Mean: 1.0 Range: < or =0.6-3.0 ADDITIONAL INFORMATION Testing performed by Liquid Chromatography-Tandem Mass Spectrometry (LC-MS/MS). This test was developed and its performance characteristics determined by [facility] in a manner consistent with CLIA requirements. This test has not been cleared or approved by the U.S. Food and Drug Administration. Blood 01/21/2025 7:50 AM EST 01/21/2025 7:55 AM EST us Juan C Ball DO LAB BLOOD BKR ORDERABLES Final R esult AVALOS (BEAKER) [facility] [address] [place], [place] [address] [phone] * Cortisol (01/21/2025 7:50 AM EST) Cortisol 1.9 See comment ug/dL 01/21/2025 9:02 PM EST [facility] Comment: NORMALS: 8AM-12PM = 5-25 ug/dL 12PM-8PM = 5-15 ug/dL 8PM-8AM = <10 ug/dL Cortisol levels may be affected by a variety of factors and should be interpreted in the context of the individual patient. A known interferent in this immunoassay is prednisolone (results may be falsely high by 5-8 %). Fludrocortisone (Florinef, 9-alpha fluorocortisol) does not interfere. Blood 01/21/2025 7:50 AM EST 01/21/2025 7:55 AM EST us Juan C Ball DO LAB BLOOD BKR ORDERABLES Final R esult [facility] [address] [place] [address] from Last 3 Months Insurance [employer] PLUS PPO [place] Self Representation Document Preparation PLUS PPO [place] Self [place] Document Preparation PLUS [place]PO [place] Document Preparation PLUS PPO [place] Document Preparation PLUS PPO [place] Document Preparation PLUS [place]PO [place] Document Preparation PLUS [place]PO [place] Document Preparation PLUS [place]PO [place] Document Preparation [place] [address] Advance Directives For more information, please contact: [phone] (9AM - 5PM [email or web address], Saturday-Saturday) * Full Code (Presumed) (Latest Code Status on File) Date Activated Date Inactivated Comments 06/25/2016 7:24 PM 06/27/2016 3:14 PM Care Teams Seat Trimmer Relationship Specialty Start Date End Date Darell Zacarias DO 24 [facility] [place] [address] PCP - General Family Medicine 03/16/16 Misha Dukes MD [address] [place] [address], [address] [place] [phone] [email or web address] Historical LMR Provider 01/03/17 Additional Source Comments The information contained in this document represents components of the legal health record. It is not the complete legal health record.[facility]
--- OUTSIDE RECORDS SUMMARY | 2025-02-04 06:18 | XMS_ITS | Encounter Summary ---
Author Organization [facility] Address [address] [facility] [address] [address] [place] [address] Phone Care Team Providers Care Industrial Psychology Teacher Name Role Phone Darell Zacarias DO Primary Care Provider Misha Dukes MD Unavailable [phone] Reason for Referral * MRI/CAT Scan - Closed Specialty Diagnoses / Procedures Referred By Edin sanders Referred To Contact Radiology Procedures Outside CT Abd/pelvis Report Only [facility] [place] [address] [place] [address] Phone: tel: fax: Referral ID Status Reason Start Date Expiration Date Visits Re quested Visits Authorized [id number] Closed 01/21/2025 1 1 Encounter Details Date Type Department Care Team (Late st Contact Info) Description 01/21/2025 Orders Only [facility] [address] [place] [address] ProviderRuchi MD [address] [place] [address] Social History Tobacco Use Types Packs/Day Years [...] 10:10 AM EDT Office Visit [facility] [address] [place] [address] [place] [address] Juan C Ball DO [address] [place] [phone] [email or web address] documented as of this encounter Procedures Procedure Name Priority Date/Time Associated Diagnosis Comments OUTSIDE CT ABD/PELVIS REPORT ONLY Routine 07/15/2017 4:52 PM EDT documented in this encounter Results * Outside CT Abd/pelvis Report Only (07/15/2017 4:52 PM EDT) us Historical Provider MD RIZZO CT ABD/PELVIS Final R esult documented in this encounter Visit Diagnoses Not on filedocumented in this encounter Care Teams Industrial Psychology Teacher Relationship Specialty Start Date End Date Darell Zacarias DO [address] [facility] [place] [address] PCP - General Family Medicine 03/16/16 Misha Dukes MD [address] [place] [address], [facility] [place] [address] [email or web address] Historical LMR Provider 01/03/17 documented as of this encounter Additional Source Comments The information contained in this document represents components of the legal health record. It is not the complete legal health record.[facility]
--- OUTSIDE RECORDS SUMMARY | 2025-02-04 06:18 | XMS_ITS | Encounter Summary ---
Author Organization [facility] Address [address] [place] [address] Phone Care Team Providers Care Wrap Knitting Machine Operator Name Role Phone Darell Zacarias DO Primary Care Provider Darell Zacarias DO Unavailable [phone] Misha Dukes MD Unavailable [phone] Allie Gaffney MD Unavailable [phone] Encounter Details Date Type Department Care Team (Late st Contact Info) Description 06/25/2016 Procedure Pass [facility] [address] [place] [address] Social History Tobacco Use Types [...] AM EDT Office Visit [facility] [address] [place] [address] Juan C Ball DO [address] [place] [id number] documented as of this encounter Visit Diagnoses Not on filedocumented in this encounter Care Teams Wrap Knitting Machine Operator Relationship Specialty Start Date End Date Darell Zacarias DO [address] [facility] [place] [address] PCP - General Family Medicine 03/16/16 Darell Zacarias DO [address] [facility] [place] [address] Historical LMR Provider 01/03/17 2 Misha Dukes MD [address] [place] [address], [address] [place] [address] Historical LMR Provider 01/03/17 Allie Gaffney MD [address] [place] [address] Orthopedics & Sports Medicine, [place] [address] [email or web address] Historical LMR Provider 01/03/17 documented as of this encounter Additional Source Comments The information contained in this document represents components of the legal health record. It is not the complete legal health record.[facility]
--- OUTSIDE RECORDS SUMMARY | 2025-02-04 06:18 | XMS_ITS | Encounter Summary ---
Author Organization [facility] Address [address] [place] [address] Phone Care Team Providers Care Casket Upholsterer Name Role Phone Darell Zacarias DO Primary Care Provider Darell Zacarias DO Unavailable [phone] Misha Dukes MD Unavailable [phone] Allie Gaffney MD Unavailable [phone] Encounter Details Date Type Department Care Team (Late st Contact Info) Description 12/08/2019 Procedure Pass [facility], [address] [address] Social History Tobacco Use Types Packs/Day Years [...] 10:10 AM EDT Office Visit [facility] [address] [place] [id number] Juan C Ball DO [address] [place] [id number] [email or web address] documented as of this encounter Visit Diagnoses Not on filedocumented in this encounter Care Teams Casket Upholsterer Relationship Specialty Start Date End Date Darell Zacarias DO [address] [facility] [address] PCP - General Family Medicine 03/16/16 Darell Zacarias DO [address] [facility] [place] [address] Historical LMR Provider 01/03/17 2 Misha Dukes MD [address] [place] [address], [address] [place] [address] Historical LMR Provider 01/03/17 Allie Gaffney MD [address] [place] [address] Orthopedics & Sports Medicine, [place] [address] [email or web address] Historical LMR Provider 01/03/17 documented as of this encounter Additional Source Comments The information contained in this document represents components of the legal health record. It is not the complete legal health record.[facility]
== END 2025-02-04 06:16 | disposition home or self-care (01) ==
LOC: CF 06:15
PROVIDERS: Visit Provider Internal Medicine
DX: M54.16 Radiculopathy, lumbar region (principal)
CPT/HCPCS: 64483; J1100; J2003; Q9967

== ENCOUNTER 2025-02-04 09:54 | Outpatient (AMB) | payer OTHER, SELFPAY ==
[2025-02-04 09:58] VITALS: BP 118/76; PULSE 56; RESP 16; O2SAT 99
--- NOTE | 2025-02-04 09:58 | MHC.OFFVIS ---
Vital Signs 02/04/25 09:58 02/04/25 10:36 BP 118/76 118/66 Blood Pressure Location Lt brachial Lt brachial Position Sitting Sitting Respiration 16 16 Pulse 56 65 Pulse Source Pulse Oximeter Pulse Oximeter Pulse Oximetry (%) 99 100 Oxygen Delivery Method Room Air Room Air Intake Visit Reasons: Right L3-L4 TFESI Zoo Caretaker Required: No Allergies Sulfa (Sulfonamide Antibiotics) Allergy (Unknown, Verified 02/04/25 09:59) Unknown Medication List - Last Reconciled 02/04/25 by Sandy Huber LPN arnica 20% ea topical diclofenac sodium 1% (Voltaren Arthritis Pain) 2 grams topical QID gabapentin 300 mg PO BEDTIME ibuprofen (Advil Liqui-Gel) 400 mg PO Q8H HPI HPI Right L3-L4 TFESI: Details: Patient presents for scheduled procedure. Denies any recent cough, cold, infection, fever or other significant changes in medical history since last office visit. [facility] Medical History (Updated 10/06/24 @ 09:13 by Alonso Terrell MD) Disorder of sacrum Lumbosacral spondylosis without myelopathy Surgical History (Updated 10/18/22 @ 11:53 by Alonso Terrell MD) History of lumbar laminectomy Social History (Updated 10/15/22 @ 09:42 by Brenda Olvera) Alcohol intake: current Alcohol type: beer and wine Patient Tobacco Use Status: Never used Tobacco Physical Exam Vital Signs: Last Vital Signs Pulse 65 02/04/25 10:36 Resp 16 02/04/25 10:36 BP 118/66 02/04/25 10:36 Pulse Ox 100 02/04/25 10:36 Oxygen Delivery Method Room Air 02/04/25 10:36 Office Procedures Details: Transforaminal epidural steroid injection, Right L3/4 After obtaining written consent, pre-procedure blood pressure and heart rate were stable and recorded in the nursing record. The patient was placed in the prone position on the fluoroscopy table. The lumbosacral area was prepped with chloraprep, allowed to dry and draped in sterile fashion. Using fluoroscopy, the skin overlying our target was anesthetized with 0.5% lidocaine. A 22 gauge 3.5 inch spinal needle was advanced to the safe triangle in the upper pole of the right L3 foramen. No paresthesias were elicited with needle placement and aspiration was negative for blood and CSF. Correct needle position was confirmed with approximately 1 ml contrast dye (Omnipaque 180 mg/ml) injected under real-time fluoroscopy. No evidence of vascular or intrathecal uptake was seen and there was both epidural and peripheral spread of the contrast agent. 10 mg dexamethasone plus 1 ml containing 0.5% lidocaine was slowly injected. The needle was flushed and removed. the same procedure was repeated for the remaining levels. The skin was cleansed and a sterile bandages were applied. The patient tolerated the procedure well and no complications were encountered. Following the procedure the patient's vital signs were stable. The patient was discharged home in good condition with post-procedural instructions. Time Out: Immediately prior to the procedure, the following was verbally confirmed that there is a signed consent form and that the correct patient, planned procedure, site and side are consistent with documentation and that necessary equipment and/or blood products are available prior to the start of the case. Complications: none EBL: <5 cc 16363 - Lumbar/Sacral Procedure code (CPT) selection complete Assessment & Plan Assessment & Plan (1) Lumbar radiculopathy: Code(s): M54.16 - Radiculopathy, lumbar region Category: Medical Plan Patient is status post right L3-4 transforaminal epidural steroid injection. Patient tolerated procedure well and was discharged home in stable condition with discharge instructions. All questions were answered. We will follow-up via telephone or in clinic to assess response to therapy. A follow-up appointment was made during today's visit. Orders: Orders FL guidance in treatment room Today Michelle Ivey APRN, POOJA M54.16 - Radiculopathy, lumbar region AMB Transforaminal Epidural Steroid Injection Today Alonso Terrell MD M54.16 - Radiculopathy, lumbar region Coding Level of Care Code Procedure Only Diagnoses Lumbar radiculopathy M54.16 CPT Codes Transforaminal Epidural Steroid Inj - TESI 3: 83147 - Lumbar/Sacral ([id number])
[2025-02-04 10:36] VITALS: BP 118/66; PULSE 65; RESP 16; O2SAT 100
== END 2025-02-04 10:37 | disposition home or self-care (01) ==
LOC: HO.PMCPRC 09:54
PROVIDERS: PCP Nurse Practitioner; Visit Provider Internal Medicine
DX: M54.16 Radiculopathy, lumbar region (principal)
CPT/HCPCS: 64483